=== PATIENT | male | born 1955 | race Caucasian/White ===

== ENCOUNTER 2017-10-20 13:26 | Emergency (ER) | payer BC, SELFPAY ==
[2017-10-20 13:33] VITALS: BP 195/101; PULSE 95; RESP 16; TEMP 37.3; O2SAT 96
--- NOTE | 2017-10-20 13:47 | ED.GENADUL ---
Disposition Clinical Impression: Hematuria Disposition: HOME Condition: Good Instructions: Hematuria (ED) Additional Instructions: Please follow-up with Dr. Mcgovern on Sunday. We will contact you for the appointment time. Please keep the Chahal in. If you notice any lack of urine flow, worsening bleeding, lightheadedness, fainting please return immediately for reevaluation. Please keep the Chahal bag in until your follow-up with Dr. Mcgovern on Sunday. Please eat a salty diet for the next 24-48 hours to continue to raise her sodium level. If you notice any worsening of your symptoms, or any new symptoms such as vomiting, diarrhea, fever, chills, shortness of breath, chest pain, numbness, weakness, or fainting , please return immediately to the emergency department for reevaluation. Please follow up with your primary care provider as soon as possible for reassessment and reevaluation. As always, it was a pleasure participating in your medical care today. Referrals: Kenan Mcgovern MD [ [facility] STAFF PHYSICIAN] - Medical Decision Making - Medical Decision Making This is a pleasant 61-year-old male who presents for hematuria for the last 24 hours which she states is very common since his previous bladder surgeries. He has been concerned though because it has not resolved with his copious amounts of water intake at home. In the past he is actually been admitted for hyponatremia secondary to the copious amounts of water that he was taking. Physical exam demonstrates no signs of pain, or significant abnormality. We will evaluate for his hemoglobin status, we will rehydrate, and three-way Chahal to irrigate any clots. He will then need prompt follow-up with urology if his results are relatively benign. 5: 40 4 PM Patient had a three-way Chahal placed, minimal clots were exuded. The urine initially ran pink, but then became a cranberry juice color. Patient still has no pain. Initial sodium was 125, he was given a liter, and so electrolytes were redrawn, and his sodium was making an upward gain. He demonstrates no neurologic complaints, shows no signs of ataxia, imbalance, or mental status changes. I feel that this is iatrogenic secondary to his the copious amounts of free water that he has been drinking in an attempt to hydrate himself for his hematuria. With no signs of neurologic findings and the fact that he has had significantly lower sodiums in the past they feel that he is stable for discharge home with close follow-up. We did contact Dr. Mcgovern, however he is not actually operations staff specialist security. He was not able to call back. I do feel that the patient can follow up promptly on Sunday morning for potential urologic evaluation. He will be given a Chahal catheter with a leg bag for home use. We discussed red flags which to return. He is hemodynamically stable with no significant tachycardia, hypotension, and does demonstrate a normal hemoglobin. I have extensively reviewed the treatment plan and discharge instructions with the patient. I have addressed all patient concerns at this time. The patient was made aware of what symptoms to monitor for that would warrant a return to the emergency department. Discussed the plan with the patient, they demonstrate verbal understanding and agreement with our assessment and plan at this time. History of Present Illness - General Chief complaint: Urinary Stated complaint: UTI Time Seen by Provider: 10/20/17 13:44 - History of Present Illness Initial comments: This is a 61-year-old male with a past medical history of bladder cancer in 2001 with surgical resection and radiation, and repeat tumor within the last 5 years which was surgically removed. He presents today for hematuria. Patient states that classically over the last few years when he gets dehydrated he will notice some blood in his urine, then he will drink a significant amount of water and this will resolve on its own. He states that over the last few days he has not been drinking as much, noticed some mild hematuria starting 24 hours ago, has been drinking a fair bit of water and Gatorade, but has noted continued hematuria. He denies any pain, dysuria, flank pain, vomiting, or diarrhea. He has admitted to slight increase worsening difficulty for urinating, as well as some pelvic pressure but denies any significant pain. He has not been following up with urology for the last 1-2 years. He has been told by Dr. Mcgovern whom he has never seen, that he needs to follow-up with him but he has not yet. He is not on any blood thinners. He denies any other complaints at this time. He denies any IV or illicit drug use. He denies any pertinent family history. - Related Data Diltiazem [Cardizem Cd] 240 mg PO QAM 12/02/16 Hydrochlorothiazide 25 mg PO DAILY 12/02/16 Lisinopril [Prinivil] 30 mg PO DAILY 12/02/16 Allergies Allergy/AdvReac Type Severity Reaction Status Date / Time No Known Allergies Allergy Unverified 10/20/17 14:13 Review of Systems Other: 10 point review of systems was performed, pertinent positives and negatives are noted in the history of present illness. Past Medical History - Past Medical History bladder cancer s/p radiation Surgical history: other (bladder tumor ) - Social History Alcohol use: none Drug use: none General Exam - Other Other exam information: 1.Const: Well-nourished, Well-developed, appearing stated age 2.Eyes: PERRL, no conjunctival injection, and symmetrical lids. 3.ENT: Atraumatic external nose and ears. Moist MM. Neck: Symmetric, trachea midline, No thyromegaly. 4.CVS: +S1/S2, No murmurs or gallops. Peripheral pulses 2+ and equal in all extremities. Brisk capillary refill in all extremities. 5.RESP: Unlabored respiratory effort. Clear to auscultation bilaterally. No wheezes rales or rhonchi 6.GI: Soft, Nontender/Nondistended, No hepatosplenomegaly. No guarding or rebound. 7.MSK: Normocephalic/Atraumatic, Extremities w/o deformity or ttp No cyanosis or clubbing, Normal movement of all extremities. No flank tenderness on percussion. Male genitalia demonstrates an uncircumcised penis, with no blood at the urethral meatus. Patient does demonstrate slightly edematous scrotum, which she assured me multiple times that this is his baseline, as confirmed by his . Left-sided reducible hernia noted. No testicular tenderness. Good transillumination with lighting. No penile or testicular tenderness. 8.Skin: Warm, Dry. No rashes or lesions. 9.Neuro: kardex clerk II-XII grossly intact. Sensation grossly intact, no focal neurologic deficits. 10.Psych: (AAO) x3. Appropriate mood and affect Course Vital Signs - 24 hr 10/20/17 13:33 Temperature 37.3 C Pulse 95 H Respiratory 16 Rate Blood Pressure 195/101 Pulse Oximetry 96
[2017-10-20 14:07] LABS: Abs Immature Grans 0.01 k/cumm (0.0-0.09); Absolute Basophil Count 0.02 k/cumm (0.0-0.2); Absolute Eosinophil Count 0.15 k/cumm (0.0-0.7); Absolute Lymphocyte Count 1.22 k/cumm (1.2-3.4); Absolute Monocyte Count 0.59 k/cumm (0.11-0.7); Absolute Neutrophil Count 6.75 k/cumm (1.2-6.7); Basophils % 0.2; Eosinophils % 1.7; HCT 40.6 % (40.0-50.0); Immature Grans % 0.1; Mean Corp. HGB Concentration 34.5 g/dL (32.0-36.0); Mean Corpuscular Hemoglobin 28.7 pg (27.0-33.0); Mean Corpuscular Volume 83.4 fL (80-95); Mean Platelet Volume 9.1 fL (8.0-11.0); Monocytes % 6.8; Neutrophils % 77.2; Platelet Count 319 x1000/uL (130-400); RBC 4.87 m/cumm (4.50-6.00); RBC Distribution Width 12.7 % (11.8-14.1); White Blood Cell Count 8.74 k/cumm (4.4-10.8)
[2017-10-20] MEDS: Normal Saline 1,000 ML 1000 ML IV (14:12)
[2017-10-20] MEDS: LORazepam 2 MG/ML VIAL 0.5 MG IVP ×2 (14:13→16:58)
[2017-10-20 14:19] LABS: ALT 21 U/L (12-78); AST 17 U/L (15-37); Albumin 3.7 g/dL (3.4-5.0); Alkaline Phosphatase 74 U/L (46-116); Anion Gap 9.9 mmol/L (3-11); BUN 12 mg/dL (7-18); Bilirubin, Total 0.8 mg/dL (0.2-1.0); CO2 24.1 mmol/L (21.0-32.0); CREATININE 0.99 mg/dL (0.70-1.30); Calcium 8.8 mg/dL (8.5-10.1); Chloride 91 mmol/L (98-107); Glucose 111 mg/dL (70-100); Potassium 3.4 mmol/L (3.5-5.1); Sodium 125 mmol/L (136-145); Total Protein 7.1 g/dL (6.4-8.2)
[2017-10-20 14:32] LABS: INR 1.1 (1.0-3.5); PTT Activated 28.1 sec (21.0-31.4); Prothrombin Time 10.3 sec (9.3-10.8)
[2017-10-20] MEDS: Lidocaine 2% Jelly 11 ML SYR ×2 (15:23→18:21)
[2017-10-20 15:42] LABS: ALT 21 U/L (12-78); AST 15 U/L (15-37); Albumin 3.1 g/dL (3.4-5.0); Alkaline Phosphatase 63 U/L (46-116); Anion Gap 10.1 mmol/L (3-11); BUN 11 mg/dL (7-18); Bilirubin, Total 0.7 mg/dL (0.2-1.0); CO2 21.9 mmol/L (21.0-32.0); CREATININE 1.06 mg/dL (0.70-1.30); Calcium 7.9 mg/dL (8.5-10.1); Chloride 96 mmol/L (98-107); Glucose 101 mg/dL (70-100); Potassium 3.3 mmol/L (3.5-5.1); Sodium 128 mmol/L (136-145); Total Protein 6.1 g/dL (6.4-8.2)
[2017-10-20 18:21] VITALS: BP 159/95; PULSE 89; RESP 16; O2SAT 97
[2017-10-20] MEDS: LORazepam 0.5 MG TAB 1 MG PO (18:43)
== END 2017-10-20 18:49 | disposition home or self-care (01) ==
PROVIDERS: Emergency Provider Student in an Organized Health Care Education/Training Program; PCP Internal Medicine
DX: R31.9 Hematuria, unspecified (principal); E87.1 Hypo-osmolality and hyponatremia; I10 Essential (primary) hypertension; Z85.51 Personal history of malignant neoplasm of bladder; Z92.3 Personal history of irradiation
CPT/HCPCS: 36415; 51703; 80053; 96361; 96374; 96376; 99284; 80329; 81003; 85025; 85610; 85730; J2060

== ENCOUNTER 2017-10-20 20:01 | Emergency (ER) | payer BC, SELFPAY ==
[2017-10-20 20:13] VITALS: BP 119/83; PULSE 95; RESP 16; TEMP 36.5; O2SAT 97
--- NOTE | 2017-10-20 20:23 | ED.GENADUL ---
Disposition Clinical Impression: Blocked urinary catheter Disposition: HOME Condition: Stable Instructions: Manual Bladder Irrigation (GEN) Medical Decision Making - Medical Decision Making pt here after his catheter was blocked and had some discomfort, now draining on it's own without residual clots and feels better without symptoms, will d/c home. He denies fevers and has no suprapubic pain now that his catheter is draining so do not feel he requires eval for uti - Differential Diagnosis clogged cather, urinary distenion History of Present Illness - General Chief complaint: Recheck Stated complaint: CATHETER TO BE PULLED Time Seen by Provider: 10/20/17 20:03 Source: patient Mode of arrival: ambulatory Limitations: no limitations - History of Present Illness Initial comments: 61 yo male who has required multiple foleys in the past and had another placed today, comes in because the quinn hasn't drained for a few horus and he was having pain in the suprapubic region. While walking into the exam room a clot drained and he had 300cc of blood tinged urine come out and this completely relieved his symptoms. HAs no pain, fevers, n/v, back pain now. MD Complaint: plugged catheter Onset/Timin -: hour(s) Improves with: none Worsens with: none - Related Data Diltiazem [Cardizem Cd] 240 mg PO QAM 12/02/16 Hydrochlorothiazide 25 mg PO DAILY 12/02/16 Lisinopril [Prinivil] 30 mg PO DAILY 12/02/16 Allergies Allergy/AdvReac Type Severity Reaction Status Date / Time No Known Allergies Allergy Unverified 10/20/17 14:13 Review of Systems Constitutional: denies: chills, fever Respiratory: denies: shortness of breath Cardiovascular: denies: chest pain Gastrointestinal: denies: abdominal pain, nausea, vomiting Musculoskeletal: denies: back pain Skin: denies: rash Neurological: denies: headache Comment: All other systems reviewed and negative Past Medical History - Past Medical History bladder cancer s/p radiation Surgical history: other (bladder tumor ) - Social History Alcohol use: none Drug use: none General Exam - General Limitations: no limitations General appearance: alert, in no apparent distress - Head Head exam: Present: atraumatic - Eye Eye exam: Present: normal apperance - ENT ENT exam: Present: mucous membranes moist - Neck Neck exam: Present: normal inspection - Respiratory Respiratory exam: Absent: respiratory distress - Cardiovascular Cardiovascular Exam: Present: regular rate - GI/Abdominal GI/Abdominal exam: Absent: tenderness - Extremities Exam Extremities exam: Present: normal inspection - Back Exam Back exam: Absent: CVA tenderness (R), CVA tenderness (L) - Neurological Exam Neurological exam: Present: alert, oriented X3 - Psychiatric Psychiatric exam: Present: normal affect - Skin Skin exam: Present: warm Course Vital Signs - 24 hr 10/20/17 20:13 Temperature 97.7 F Pulse 95 H Respiratory 16 Rate Blood Pressure 119/83 Pulse Oximetry 97
--- NOTE | 2017-10-21 01:24 | NUR.NOTE ---
Nursing Note: at the time of discharge urine was director of market analysis with occ small clot. Patient had increased po fluids intake
--- NOTE | 2017-10-21 01:26 | NUR.NOTE ---
Nursing Note: leg bag kit was sent home with the patient. cath was to large gravity bag at discharge.
== END 2017-10-20 21:12 | disposition home or self-care (01) ==
PROVIDERS: Emergency Provider Emergency Medicine; PCP Internal Medicine
DX: T83.091A Other mechanical complication of indwelling urethral catheter, initial encounter (principal); Y84.6 Urinary catheterization as the cause of abnormal reaction of the patient, or of later complication, without mention of misadventure at the time of the procedure
CPT/HCPCS: 99281

== ENCOUNTER 2017-10-20 23:18 | Emergency (ER) | payer BC, SELFPAY ==
--- NOTE | 2017-10-20 23:58 | ED.GENADUL ---
Disposition Clinical Impression: Complication, blocked Quinn catheter Disposition: HOME Condition: Good Medical Decision Making - Medical Decision Making PT here with non draining quinn. ATtempted irrigation but no return, will have nursing place larger quinn patient now draining bloody urine without clots. HE feels much better and would like d/c. Will d/c home and he will f/u with urology - Differential Diagnosis clogged quinn, clots History of Present Illness - General Stated complaint: CATH PLUGGED Time Seen by Provider: 10/20/17 23:28 - History of Present Illness Initial comments: 61 yo male returns as his quinn again stopped draining. HE was seen on 10/20 and had uqinn placed which he has required multiple times in the past. It stopped drainaging and he returned, it was flushed with good flow and d/c'd home but again became clogged so came back here. Denies fevers or chills, back pain. Has bloody urine in quinn bag Complaint: clogged quinn Onset/Timin -: hour(s) Improves with: none Worsens with: none - Related Data Diltiazem [Cardizem Cd] 240 mg PO QAM 12/02/16 Hydrochlorothiazide 25 mg PO DAILY 12/02/16 Lisinopril [Prinivil] 30 mg PO DAILY 12/02/16 Allergies Allergy/AdvReac Type Severity Reaction Status Date / Time No Known Allergies Allergy Unverified 10/21/17 00:09 Review of Systems Constitutional: denies: fever Respiratory: denies: shortness of breath Cardiovascular: denies: chest pain Gastrointestinal: denies: abdominal pain, nausea, vomiting Musculoskeletal: denies: back pain Skin: denies: rash Comment: All other systems reviewed and negative Past Medical History - Past Medical History bladder cancer s/p radiation Surgical history: other (bladder tumor ) - Social History Alcohol use: none Drug use: none General Exam - General Limitations: no limitations General appearance: alert, in no apparent distress - Head Head exam: Present: atraumatic - Eye Eye exam: Present: normal apperance - ENT ENT exam: Present: mucous membranes moist - Neck Neck exam: Present: normal inspection - Respiratory Respiratory exam: Absent: respiratory distress - Cardiovascular Cardiovascular Exam: Present: regular rate - GI/Abdominal GI/Abdominal exam: Present: soft. Absent: distended - Extremities Exam Extremities exam: Present: normal inspection - Back Exam Back exam: Absent: CVA tenderness (R), CVA tenderness (L) - Neurological Exam Neurological exam: Present: alert, oriented X3 - Skin Skin exam: Present: warm
[2017-10-21 00:05] VITALS: BP 158/88; PULSE 78; RESP 20; TEMP 37.1; O2SAT 97
[2017-10-21] MEDS: Lidocaine 2% Jelly 11 ML SYR (00:11)
--- NOTE | 2017-10-21 01:28 | NUR.NOTE ---
Nursing Note: quinn cath currently in place d/c'd, scant urine output
[2017-10-21 01:31] VITALS: BP 140/80; PULSE 68; RESP 18; O2SAT 97
== END 2017-10-21 15:30 | disposition home or self-care (01) ==
PROVIDERS: Emergency Provider Emergency Medicine; PCP Internal Medicine
DX: T83.091A Other mechanical complication of indwelling urethral catheter, initial encounter (principal); Y84.6 Urinary catheterization as the cause of abnormal reaction of the patient, or of later complication, without mention of misadventure at the time of the procedure
CPT/HCPCS: 51703; 99283

== ENCOUNTER 2017-10-21 13:24 | Emergency (ER) | payer BC, SELFPAY ==
[2017-10-21 13:29] VITALS: BP 139/93; PULSE 103; RESP 20; TEMP 36.4; O2SAT 99
--- NOTE | 2017-10-21 13:36 | ED.GENADUL_ITS ---
Disposition Clinical Impression: Hematuria Disposition: HOME Condition: Stable Instructions: Hematuria (ED) Additional Instructions: Please follow-up with Dr. Mcgovern tomorrow morning. Please continue to flush her bladder as needed as we showed you. If you notice any worsening of your symptoms, or any new symptoms such as vomiting, diarrhea, fever, chills, shortness of breath, chest pain, numbness, weakness, or fainting , please return immediately to the emergency department for reevaluation. Please follow up with your primary care provider as soon as possible for reassessment and reevaluation. As always, it was a pleasure participating in your medical care today. Referrals: Kenan Mcgovern MD [ [facility] STAFF PHYSICIAN] - Medical Decision Making - Medical Decision Making This is a 61-year-old male with history of hematuria who needs prompt follow-up with Dr. Mcgovern of urology. He was seen yesterday for hematuria, discharged home with a three-way Chahal catheter. He has been back twice for various questions or concerns. He did seem to have some obstruction yesterday, and then a subsequent three-way Chahal was placed and set of the small single lumen Chahal was previously inserted. He comes in today for evaluation of potential clotting. Patient states that they have been flushing at home, however when they would insert fluid he would go freely, however they had some resistance when retracting it however the patient had continued drainage of fluid from his Chahal. He was concerned that there may be a clot at the end which could be causing that intermittent obstruction. Physical exam shows no pain or tenderness. Patient is very nervous, and has a high anxiety level. I feel that he is safe for discharge home. We will irrigate some here in the emergency department. We did discuss with the patient potential admission for continued irrigation and close management however the patient is adamant that he would like to go home rather than stay here overnight. 3 PM A large clot was extracted by nursing utilizing flushing technique without any difficulty. Patient continues to have some mild blood-tinged urine, but no evidence of continued clots. Patient continues no pain and no other symptoms whatsoever. I did discuss with him admission versus discharge and he is still requesting discharge. His three-way Chahal remains in place, we went over directions and instructions with both patient and his are proper flushing techniques. He will follow-up with Dr. Mcgovern tomorrow morning. We discussed red flags which return he understands. I have extensively reviewed the treatment plan and discharge instructions with the patient and their family. I have addressed all patient concerns at this time. The patient and family was made aware of what symptoms to monitor for that would warrant a return to the emergency department. Discussed the plan with the patient and family, they demonstrate verbal understanding and agreement with our assessment and plan at this time. History of Present Illness - General Chief complaint: Recheck Stated complaint: UTI Time Seen by Provider: 10/21/17 13:35 - History of Present Illness Initial comments: This is a 61-year-old male with a past medical history of bladder cancer in 2001 with surgical resection radiation, and repeat tumor within the last 5 years which was surgically removed. He presented yesterday for evaluation of hematuria. He was rehydrated, a Chahal was placed, and a shunt was discharged home after he was noted to be hemodynamically stable, have a normal hemoglobin, and no pain or other systemic symptoms. The patient does have history of anxiety and is extremely nervous and anxious with these episodes. He returned twice throughout the night, and eventually had a three- way Chahal that was placed, but requesting discharge since he was stable he was eventually discharged home. Follow-up with Dr. Mcgovern will occur on Sunday. He presents today for repeat concern for potential clogging of the Chahal. Chahal still does show mild redness in the bladder bag. They have been flushing at home, and note that there is no resistance when inserting fluid, however they do note some resistance when extracting it. The patient still does have consistent drainage from his Chahal catheter, however they cannot draw it out as easily as they would like. They are concerned for potential clot so they came for evaluation. The patient denies any complaints, pain, or any new symptoms. - Related Data Diltiazem [Cardizem Cd] 240 mg PO QAM 12/02/16 Hydrochlorothiazide 25 mg PO DAILY 12/02/16 Lisinopril [Prinivil] 30 mg PO DAILY 12/02/16 Allergies Allergy/AdvReac Type Severity Reaction Status Date / Time No Known Allergies Allergy Unverified 10/21/17 00:09 Review of Systems Other: 10 point review of systems was performed, pertinent positives and negatives are noted in the history of present illness. Past Medical History - Past Medical History bladder cancer s/p radiation Surgical history: other (bladder tumor ) - Social History Alcohol use: none Drug use: none General Exam - Other Other exam information: 1.Const: Well-nourished, Well-developed, appearing stated age 2.Eyes: PERRL, no conjunctival injection, and symmetrical lids. 3.ENT: Atraumatic external nose and ears. Moist MM. Neck: Symmetric, trachea midline, No thyromegaly. 4.CVS: +S1/S2, No murmurs or gallops. Peripheral pulses 2+ and equal in all extremities. Brisk capillary refill in all extremities. 5.RESP: Unlabored respiratory effort. Clear to auscultation bilaterally. No wheezes rales or rhonchi 6.GI: Soft, Nontender/Nondistended, No hepatosplenomegaly. No guarding or rebound. exam: Triple-lumen Chahal is in place. No suprapubic pain or tenderness. No blood at the urethral meatus. 7.MSK: Normocephalic/Atraumatic, Extremities w/o deformity or ttp No cyanosis or clubbing, Normal movement of all extremities 8.Skin: Warm, Dry. No rashes or lesions. 9.Neuro: kiln firer helper II-XII grossly intact. Sensation grossly intact, no focal neurologic deficits. 10.Psych: (AAO) x3. Appropriate mood and affect Course Vital Signs - 24 hr 10/21/17 13:29 Temperature 36.4 C L Pulse 103 H Respiratory 20 Rate Blood Pressure 139/93 Pulse Oximetry 99
[2017-10-21] MEDS: LORazepam 0.5 MG TAB PO (13:53)
[2017-10-21 15:29] VITALS: BP 115/78; PULSE 81; RESP 16; O2SAT 98
--- NOTE | 2017-10-22 09:52 | PDOC.ERCMPRO ---
Care Management Progress Note 10/22-Dr. Woodruff requested assistance with a urology f/u today, 10/22 for urinary retention and hematuria. Patient seen in ED 10/20 and 10/21. Three way quinn cath placed on 10/20. Patient flushing at home. Referral faxed to Urology this am.
== END 2017-10-21 15:30 | disposition home or self-care (01) ==
PROVIDERS: Emergency Provider Student in an Organized Health Care Education/Training Program; PCP Internal Medicine
DX: T83.091A Other mechanical complication of indwelling urethral catheter, initial encounter (principal); R31.9 Hematuria, unspecified
CPT/HCPCS: 99284; 99283

== ENCOUNTER 2019-01-30 14:45 | Outpatient (REF) | payer BC, SELFPAY | END 2019-01-30 15:05 | LOC: LBN 14:45 | PROVIDERS: PCP Internal Medicine; Visit Provider Nurse Practitioner Gerontology | DX: R31.0 Gross hematuria (principal); Z85.51 Personal history of malignant neoplasm of bladder | CPT/HCPCS: 87086 ==

== ENCOUNTER 2019-02-03 09:18 | Day surgery (SDC) | payer BC, SELFPAY ==
[2019-02-03] VITALS (13 sets, daily range): BP systolic 98–163; BP diastolic 48–106; PULSE 59–98; RESP 9–18; TEMP 36.2–36.7; O2SAT 95–99
[2019-02-03] MEDS: Lactated Ringers 1,000 ML 80 ML IV (10:05)
[2019-02-03] MEDS: ceFAZolin 1 GM/50 ML BAG IVPB (10:45)
[2019-02-03] MEDS: Lidocaine 2% Jelly 6 ML SYR (10:54)
--- NOTE | 2019-02-03 11:04 | BLADDER_PTH ---
PATIENT: ELSY TRAVIS LOC: [facility] U#:[id number] AGE/SX: 63/M ROOM: RE02/03/[address]: Kenan Mcgovern MD : [id number] BED: DIS: 02/03/2019 SPEC #: [id number] RECD: 02/03/19 12:34 STATUS: RONALDO REQ #: [id number] RACHEL: 02/03/19 11:[address]: Kenan Mcgovern DEPT: Surgical Specimen RECD BY: Nicole Matias ENTERED: 02/03/19 12:37 SP TYPE: Bladder OTHR DR: Chucky Cruz Tissues: 1 - BLADDER BIOPSY Procedures: GROSS AND MICRO LEVEL 4 IMMUNOPEROXIDASE STAIN Comments: [id number]
--- NOTE | 2019-02-03 11:14 | W.PM.DSUDISC ---
Discharge Plan Disposition Patient Disposition: HOME Condition: Stable Discharge Details Attending Provider: Kenan Mcgovern Primary Care Provider: Chucky Cruz Home Meds and New Rx's Prescriptions: New lorazepam 1 mg tablet 1 mg PO TID MDD 3 PRN (Reason: spasms) Qty: 15 RF: 0 No Action Lorazepam 1 MG tablet 1 mg PO HS Qty: 15 RF: 0 diltiazem HCl 240 MG capsule,ext.rel 24h degradable 240 mg PO QAM RF: 0 lisinopril [Zestril] 30 MG tablet 30 mg PO DAILY RF: 0 hydrochlorothiazide 25 MG tablet 25 mg PO DAILY RF: 0 famotidine 20 MG tablet 20 mg PO PRN PRNRF: 0 tramadol 50 MG tablet 50 mg PO Q6H PRN (Reason: Pain) Qty: 20 RF: 0 Discharge Instructions Additional Instructions: Pt must void prior to discharge F/U 1 week to discuss pathology results Activity:: Activity as Tolerated Shower/Bathe:: 24 hours Diet:: As Tolerated Discharge Orders Discharge Orders: Discharge Order (Routine); Ordered 02/03/19 Ordered By: Kenan Mcgovern DS: Diagnosis Discharge Diagnosis (1) Gross hematuria: Status: Acute (2) History of bladder cancer: Status: Acute
[2019-02-03] MEDS: Phenazopyridine 200 MG TAB PO (11:52)
[2019-02-03] MEDS: LORazepam 2 MG/ML VIAL 0.5 MG IVP ×2 (11:52→12:07)
--- NOTE | 2019-02-03 12:32 | ROE_ITS ---
DATE OF PROCEDURE: February 03, 2019 PREOPERATIVE DIAGNOSIS: 1. Gross hematuria. 2. History of invasive bladder cancer. POSTOPERATIVE DIAGNOSIS: Same. PROCEDURE: Cystoscopy; transurethral resection of bladder lesions with fulguration of bleeding sites . SURGEON: Kenan Mcgovern M.D. ANESTHESIA: MAC with conversion to General by facemask. COMPLICATIONS: None. ESTIMATED BLOOD LOSS: Minimal. HISTORY: This is a 63-year-old gentleman who has a history of invasive bladder cancer. He was treat ed with external beam radiation and systemic chemotherapy. He's had several localized recurrences wi th low-grade, non-invasive tumor since his initial diagnosis over fifteen years ago. Recently he's been having gross hematuria with clots. He presents now for a cystoscopy with possible clot evacuation, possible transurethral resection of any visible tumor, and possible fulguration of any bleeding sites. OPERATIVE REPORT: The patient was brought to the operating room on 02/03/19. After successful induc tion of monitored anesthesia care, he was placed in the dorsal lithotomy position. His genitalia was prepped and draped. 2% Xylocaine jelly was instilled into the urethra to act as a local anesthetic. A 22French rigid cystoscope was passed through the urethra into the bladder. The urethra and bladder were inspected with a 30-degree lens. The pendulous, bulbous and membranous urethras appeared normal with no strictures. The prostatic ure thra showed no active bleeding and no papillary lesions. The bladder neck was entered and the bladder mucosa was inspected. No blood was seen coming from eit her ureteral orifice. On the patient's left lateral wall some necrotic tissue was identified along with some papillary lesi ons worrisome for urothelial cell carcinoma. No similar lesions were found on the right side of the bladder. The cystoscope was withdrawn and we then passed in a 24 [place] resectoscope sheath. We converted to general anesthesia. Re-inspection of the bladder confirmed the abnormal area on the left lateral wall. This area measure d between 2 and 5 cm in largest dimension. We utilized the resectoscope loop to take multiple biopsi es of the visible abnormality, including the necrotic area, as well as the more papillary area. Thes e samples were sent to pathology for permanent section. We then switched over to the ball electrode and cauterized all biopsy sites and abnormal-appearing ti ssue. Care was taken not to involve the ureteral orifice in the cauterization procedure. At the completion of the procedure no active bleeding was seen. The scope was removed. The patient tolerated this procedure well with no complications. cc: Chucky Cruz M.D.
[2019-02-03] MEDS: Oxybutynin 5 MG TAB PO ×2 (13:26→16:19)
[2019-02-03] MEDS: traMADol 50 MG TAB PO (13:54)
== END 2019-02-03 17:23 | disposition home or self-care (01) ==
PROVIDERS: PCP Internal Medicine; Visit Provider Urology
PROC: 0TBB8ZZ Excision of Bladder, Via Natural or Artificial Opening Endoscopic (ICD-10-PCS; CPT 52235; principal; 2019-02-03 11:15)
DX: C67.2 Malignant neoplasm of lateral wall of bladder (principal); R31.0 Gross hematuria; Z92.3 Personal history of irradiation; Z92.21 Personal history of antineoplastic chemotherapy
CPT/HCPCS: 52235; 88305; 88361; J0690; J2060

== ENCOUNTER 2019-03-31 01:41 | Outpatient (CLI) | payer BC, SELFPAY ==
[2019-03-31 13:10] LABS: CREATININE 1.17 mg/dL (0.70-1.30)
[2019-03-31] MEDS: Breeza Beverage 473 ML BTL PO ×2 (13:18→13:19)
[2019-03-31] MEDS: Omnipaque 350 MG/ML 50 ML BTL PO (13:19)
--- NOTE | 2019-03-31 14:46 | DI.CT_ITS ---
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 Mediastinum and Brooke: Enlarged lymph nodes present. There is an enlarged subcarinal lymph node measu ring 2.9 x 1.4 centimeters. 1.7 centimeter right node. Pulmonary parenchyma: No consolidation or dominant measurable mass. No architectural distortion. Pleura: No effusion or pneumothorax. Lymph nodes: See above. Aorta: Thoracic portion non-dilated. Heart: No cardiomegaly or pericardial effusion. Bones: Degenerative changes. Old right rib fracture. No aggressive osseous lesion. ABDOMEN: Liver: Normal density. There are few round, homogeneously hypodense lesions scattered in the liver. The largest is seen in the caudal aspect of the liver and measures 1.1 cm. They are too small for fu rther characterization but likely reflect cysts. Gallbladder and biliary tract: No radiodense calculus or dilation. Pancreas: Normal density, no abnormal calcifications or inflammatory process. Spleen: Normal. Kidneys: Normal size, contour and axis. No radiodense stones or obstructive uropathy. Bilateral renal cysts. There is mild dilatation of the left renal collecting system to the level of the urinary angelika dder. No obstructing stone is seen. Adrenal glands: No masses seen. Aorta: Atherosclerosis. No aneurysmal dilatation. Lymph nodes: Enlarged lymph nodes are seen in the retroperitoneum. The largest is a left periaortic lymph node measuring 1.4 centimeters in short axis. There are enlarged lymph nodes seen within the m esentery. PELVIS: Bladder: There is bladder wall thickening. It appears eccentric. It is most marked on the left and at the base. Bowel: There is a large amount of stool throughout the colon suggesting constipation. No evidence of bowel obstruction is seen. There is a normal appendix present. No evidence of bowel, inflammatory or infectious process. There is a small hiatal hernia. Peritoneal cavity: No ascites, collection or mesenteric inflammatory response. Bones: Degenerative changes are seen in the spine. No aggressive osseous lesions are identified. Reproductive organs: Note is made of a large right hydrocele. Prostate gland appears enlarged. IMPRESSION: 1. Asymmetric urinary bladder wall thickening. Neoplasm cannot be excluded. Follow-up is recommende d. 2. Enlarged retroperitoneal lymph nodes. 3. Mild dilatation of the left renal collecting system without evidence of obstructing stone. Bladde r mass cannot be excluded. 4. Large right hydrocele. 5. Enlarged thoracic lymph nodes. DATA REPOSITORY: All CT scans at this facility are submitted to the National Radiology Data Registry (NRDR) Dose Index Registry (DIR) with the [employer] ([employer]). RADIATION OPTIMIZATION: All CT scans at this facility use at least one of these dose optimization te chniques: automated exposure control; mA and/or kV adjustment per patient size (includes targeted exa ms where dose is matched to clinical indication); or iterative reconstruction.
[2019-03-31] MEDS: Omnipaque 350 MG/ML 100 ML BTL IJ (14:53)
== END 2019-03-31 02:01 ==
PROVIDERS: PCP Internal Medicine; Visit Provider Urology
DX: Z85.51 Personal history of malignant neoplasm of bladder (principal); Z92.21 Personal history of antineoplastic chemotherapy; Z92.3 Personal history of irradiation; Z12.89 Encounter for screening for malignant neoplasm of other sites; R59.0 Localized enlarged lymph nodes; K76.89 Other specified diseases of liver; N32.89 Other specified disorders of bladder; K44.9 Diaphragmatic hernia without obstruction or gangrene; N43.3 Hydrocele, unspecified
CPT/HCPCS: 71260; 72193; 74160; 82565; J3490; Q9967

== ENCOUNTER 2019-04-30 01:17 | Outpatient (CLI) | payer BC, SELFPAY ==
--- NOTE | 2019-04-30 | DI.MRI_ITS ---
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 COMPARISON: No exams were available for comparison FINDINGS: The ventricles and sulci are consistent with the patient's age. There are hyperintense foci in the w julian matter seen on the FLAIR and T2 weighted images. These likely reflect small vessel ischemic dis ease. There is no acute midline shift or mass effect. The diffusion-weighted images are unremarkabl e. No intracranial hemorrhage is present. Following contrast administration, no enhancing masses ar e appreciated. There are small mucous retention cysts or polyps in the maxillary sinuses bilaterally . There is a normal flow void in the [id number]. The pituitary gland is unremarkable. IMPRESSION: No evidence of intracranial metastatic disease. Findings likely reflecting small vessel ischemic disease.
[2019-04-30] MEDS: Normal Saline Flush 10 ML SYR IVP (15:15)
[2019-04-30] MEDS: Gadoterate meglumine 20 ML VIAL 19 ML IVP (15:16)
== END 2019-04-30 01:37 ==
PROVIDERS: PCP Internal Medicine; Visit Provider Internal Medicine
DX: C67.9 Malignant neoplasm of bladder, unspecified (principal); C79.10 Secondary malignant neoplasm of unspecified urinary organs; I67.82 Cerebral ischemia
CPT/HCPCS: 70553

== ENCOUNTER 2019-05-27 07:52 | Outpatient (CLI) | payer BC, SELFPAY ==
[2019-05-27 08:18] LABS: Abs Immature Grans 0.09 k/cumm (0.0-0.09); Absolute Basophil Count 0.06 k/cumm (0.0-0.2); Absolute Eosinophil Count 0.03 k/cumm (0.0-0.7); Absolute Lymphocyte Count 1.32 k/cumm (1.2-3.4); Absolute Monocyte Count 0.78 k/cumm (0.11-0.7); Absolute Neutrophil Count 6.68 k/cumm (1.2-6.7); Basophils % 0.7; Eosinophils % 0.3; HCT 40.6 % (40.0-50.0); HGB 13.5 g/dL (13.5-17.5); Lymphocytes % 14.7; Mean Corp. HGB Concentration 33.3 g/dL (32.0-36.0); Mean Corpuscular Hemoglobin 28.1 pg (27.0-33.0); Mean Corpuscular Volume 84.6 fL (80-95); Mean Platelet Volume 8.2 fL (8.0-11.0); Monocytes % 8.7; Neutrophils % 74.6; Platelet Count 534 x1000/uL (130-400); RBC Distribution Width 13.6 % (11.8-14.1); White Blood Cell Count 8.96 k/cumm (4.4-10.8)
[2019-05-27 08:40] LABS: ALT 23 U/L (16-63); AST 15 U/L (15-37); Albumin 3.5 g/dL (3.4-5.0); Alkaline Phosphatase 99 U/L (46-116); Anion Gap 6.6 mmol/L (3-11); BUN 21 mg/dL (7-18); Bilirubin, Total 0.3 mg/dL (0.2-1.0); CO2 30.4 mmol/L (21.0-32.0); CREATININE 1.26 mg/dL (0.70-1.30); Calcium 9.2 mg/dL (8.5-10.1); Chloride 102 mmol/L (98-107); Estimated GFR 57.44 (mL/min/1.73m2); Glucose 114 mg/dL (74-106); Sodium 139 mmol/L (136-145); Total Protein 7.3 g/dL (6.4-8.2)
== END 2019-05-27 08:12 ==
PROVIDERS: PCP Internal Medicine; Visit Provider Internal Medicine
DX: C67.9 Malignant neoplasm of bladder, unspecified (principal); C79.10 Secondary malignant neoplasm of unspecified urinary organs
CPT/HCPCS: 36415; 80053; 85025

== ENCOUNTER 2019-06-17 04:35 | Outpatient (CLI) | payer BC, SELFPAY ==
[2019-06-17 07:15] LABS: Abs Immature Grans 0.15 k/cumm (0.0-0.09); Absolute Basophil Count 0.04 k/cumm (0.0-0.2); Absolute Eosinophil Count 0.08 k/cumm (0.0-0.7); Absolute Lymphocyte Count 1.44 k/cumm (1.2-3.4); Absolute Monocyte Count 0.74 k/cumm (0.11-0.7); Absolute Neutrophil Count 7.13 k/cumm (1.2-6.7); Basophils % 0.4; Eosinophils % 0.8; HCT 38.6 % (40.0-50.0); HGB 12.8 g/dL (13.5-17.5); Immature Grans % 1.6 %; Mean Corp. HGB Concentration 33.2 g/dL (32.0-36.0); Mean Corpuscular Hemoglobin 28.4 pg (27.0-33.0); Mean Corpuscular Volume 85.6 fL (80-95); Mean Platelet Volume 8.2 fL (8.0-11.0); Monocytes % 7.7; Neutrophils % 74.5; Platelet Count 514 x1000/uL (130-400); RBC 4.51 m/cumm (4.50-6.00); RBC Distribution Width 14.9 % (11.8-14.1); White Blood Cell Count 9.58 k/cumm (4.4-10.8)
[2019-06-17 07:36] LABS: ALT 26 U/L (16-63); AST 15 U/L (15-37); Albumin 3.5 g/dL (3.4-5.0); Alkaline Phosphatase 99 U/L (46-116); Anion Gap 9.2 mmol/L (3-11); BUN 24 mg/dL (7-18); Bilirubin, Total 0.4 mg/dL (0.2-1.0); CO2 25.8 mmol/L (21.0-32.0); CREATININE 1.39 mg/dL (0.70-1.30); Calcium 9.5 mg/dL (8.5-10.1); Chloride 105 mmol/L (98-107); Estimated GFR 51.28 (mL/min/1.73m2); Glucose 109 mg/dL (74-106); Potassium 4.4 mmol/L (3.5-5.1); Sodium 140 mmol/L (136-145); Total Protein 7.3 g/dL (6.4-8.2)
== END 2019-06-17 04:55 ==
PROVIDERS: PCP Internal Medicine; Visit Provider Internal Medicine
DX: C67.9 Malignant neoplasm of bladder, unspecified (principal); C79.10 Secondary malignant neoplasm of unspecified urinary organs
CPT/HCPCS: 36415; 80053; 85025

== ENCOUNTER 2019-07-08 01:10 | Outpatient (CLI) | payer BC, SELFPAY ==
[2019-07-08 08:16] LABS: Abs Immature Grans 0.12 k/cumm (0.0-0.09); Absolute Basophil Count 0.02 k/cumm (0.0-0.2); Absolute Monocyte Count 0.76 k/cumm (0.11-0.7); Absolute Neutrophil Count 6.68 k/cumm (1.2-6.7); Basophils % 0.2; Eosinophils % 1.1; HCT 37.5 % (40.0-50.0); Immature Grans % 1.3 %; Lymphocytes % 15.4; Mean Corpuscular Hemoglobin 28.6 pg (27.0-33.0); Mean Corpuscular Volume 89.5 fL (80-95); Mean Platelet Volume 8.1 fL (8.0-11.0); Monocytes % 8.4; Neutrophils % 73.6; Platelet Count 491 x1000/uL (130-400); RBC 4.19 m/cumm (4.50-6.00); RBC Distribution Width 17.1 % (11.8-14.1); White Blood Cell Count 9.08 k/cumm (4.4-10.8)
[2019-07-08 08:21] LABS: ALT 24 U/L (16-63); AST 16 U/L (15-37); Albumin 3.5 g/dL (3.4-5.0); Alkaline Phosphatase 101 U/L (46-116); Anion Gap 6.4 mmol/L (3-11); BUN 15 mg/dL (7-18); Bilirubin, Total 0.3 mg/dL (0.2-1.0); CO2 27.6 mmol/L (21.0-32.0); CREATININE 1.13 mg/dL (0.70-1.30); Calcium 9.4 mg/dL (8.5-10.1); Chloride 106 mmol/L (98-107); Glucose 139 mg/dL (74-106); Potassium 4.2 mmol/L (3.5-5.1); Sodium 140 mmol/L (136-145); Total Protein 7.3 g/dL (6.4-8.2)
== END 2019-07-08 01:30 ==
PROVIDERS: PCP Internal Medicine; Visit Provider Internal Medicine
DX: C67.2 Malignant neoplasm of lateral wall of bladder (principal); C79.10 Secondary malignant neoplasm of unspecified urinary organs
CPT/HCPCS: 36415; 80053; 85025

== ENCOUNTER 2019-07-28 01:38 | Outpatient (CLI) | payer BC, SELFPAY ==
[2019-07-28 08:46] LABS: Abs Immature Grans 0.18 k/cumm (0.0-0.09); Absolute Basophil Count 0.02 k/cumm (0.0-0.2); Absolute Lymphocyte Count 1.32 k/cumm (1.2-3.4); Absolute Monocyte Count 0.64 k/cumm (0.11-0.7); Basophils % 0.2; Eosinophils % 0.9; HCT 33.3 % (40.0-50.0); Immature Grans % 1.6 %; Lymphocytes % 11.5; Mean Corpuscular Hemoglobin 30.1 pg (27.0-33.0); Mean Platelet Volume 8.2 fL (8.0-11.0); Monocytes % 5.6; Neutrophils % 80.2; Platelet Count 598 x1000/uL (130-400); RBC 3.66 m/cumm (4.50-6.00); RBC Distribution Width 17.1 % (11.8-14.1); White Blood Cell Count 11.48 k/cumm (4.4-10.8)
[2019-07-28 08:49] LABS: Absolute Neutrophil Count 9.21 k/cumm (1.2-6.7)
[2019-07-28 08:59] LABS: ALT 26 U/L (16-63); AST 17 U/L (15-37); Albumin 3.7 g/dL (3.4-5.0); Alkaline Phosphatase 112 U/L (46-116); Anion Gap 10.8 mmol/L (3-11); BUN 26 mg/dL (7-18); Bilirubin, Total 0.3 mg/dL (0.2-1.0); CO2 26.2 mmol/L (21.0-32.0); CREATININE 1.49 mg/dL (0.70-1.30); Calcium 9.4 mg/dL (8.5-10.1); Chloride 102 mmol/L (98-107); Estimated GFR 47.33 (mL/min/1.73m2); Glucose 117 mg/dL (74-106); Potassium 3.9 mmol/L (3.5-5.1); Sodium 139 mmol/L (136-145); Total Protein 7.8 g/dL (6.4-8.2)
--- NOTE | 2019-07-28 10:15 | DI.CT_ITS ---
EXAM: CT CHEST/ABD/PEL W CLINICAL HISTORY: METASTATIC BLADDER CA, C67.9, ON CHEMO, ASSESS RESPONSE COMPARISON: CT CT PELVIC W from 03/31/[address] CHEST W from 03/31/[address] ABDOMEN W from 03/31/2019 FINDINGS: CT examination was performed utilizing biphasic imaging with intravenous infusion of 100 cc of Omnipa que 350. Lungs are clear. No pleural effusion. Previously noted sub carinal patty enlargement, 29 millimeters in diameter on axial scan, most clearl y visualized on coronal scan, 37 millimeters in diameter, unchanged from prior scan of March 31. Mild prominence of pretracheal nodes noted, unchanged. No axillary or supraclavicular adenopathy. Multiple small well-circumscribed low-attenuation hepatic lesions again noted, consistent with cysts, unchanged from prior study. Spleen is unremarkable. Pancreas appears normal. Gallbladder and bile ducts are normal. Bilateral renal cysts again noted. No urinary tract obstruction or calcification. Unremarkable appe arance of adrenal glands. Abdominal aorta is of normal diameter and no major vascular abnormality is seen. No significant abdominal wall hernia identified. No focal small bowel pathology identified. No evidence of obstruction. There is apparent wall thickening of the rectosigmoid, question post radiation change. Bladder wall thickening again noted, irregular, no gross interval change from prior study. Slight prominence of retroperitoneal nodes at the level of the sacrum is noted, this is significantly decreased since the prior examination. Mesenteric root and retroperitoneal nodes noted on prior laure dy are smaller on today's examination, 14 millimeter pre aortic node seen previously now measures les s than 5 millimeters in diameter. No new retroperitoneal and mesenteric adenopathy since the prior s tudy of March 31. No new retroperitoneal or pelvic adenopathy. No bony lesion identified on scanning of the chest, abdomen, or pelvis. IMPRESSION: Stable subcarinal and pretracheal adenopathy in a patient with history of metastatic bladder carcinom a. No other significant change in appearance of the thorax. Interval decrease in size of retroperitoneal and mesenteric adenopathy in comparison with prior study of March 31.
[2019-07-28] MEDS: Omnipaque 350 MG/ML 50 ML BTL PO (10:17)
[2019-07-28] MEDS: Breeza Beverage 473 ML BTL PO ×2 (10:17→10:18)
[2019-07-28] MEDS: Omnipaque 350 MG/ML 100 ML BTL IJ (10:19)
[2019-07-28] MEDS: Normal Saline - Diluent 50 ML VIAL IV (10:20)
[2019-07-28] MEDS: Normal Saline Flush 10 ML SYR IVP ×2 (10:20→10:21)
== END 2019-07-28 01:58 ==
PROVIDERS: PCP Internal Medicine; Visit Provider Internal Medicine
DX: C67.9 Malignant neoplasm of bladder, unspecified (principal); Z92.21 Personal history of antineoplastic chemotherapy; R59.0 Localized enlarged lymph nodes; K76.89 Other specified diseases of liver; C79.10 Secondary malignant neoplasm of unspecified urinary organs
CPT/HCPCS: 74177; 80053; 71260; 85025; J3490; Q9967

== ENCOUNTER 2019-07-29 00:52 | Outpatient (RCR) | payer BC, SELFPAY | END 2019-08-17 23:59 | disposition home or self-care (01) | LOC: INF 00:52 | PROVIDERS: PCP Internal Medicine; Visit Provider Internal Medicine | DX: R69 Illness, unspecified (principal) ==

== ENCOUNTER 2019-08-26 10:28 | Outpatient (REF) | payer BC, SELFPAY ==
[2019-08-26 10:54] LABS: Abs Immature Grans 0.02 k/cumm (0.0-0.09); Absolute Basophil Count 0.07 k/cumm (0.0-0.2); Absolute Eosinophil Count 0.06 k/cumm (0.0-0.7); Absolute Lymphocyte Count 1.16 k/cumm (1.2-3.4); Absolute Neutrophil Count 3.72 k/cumm (1.2-6.7); Basophils % 1.2; HGB 11.2 g/dL (13.5-17.5); Immature Grans % 0.3 %; Lymphocytes % 19.6; Mean Corpuscular Volume 93.8 fL (80-95); Mean Platelet Volume 8.5 fL (8.0-11.0); Monocytes % 15.2; Neutrophils % 62.7; Platelet Count 401 x1000/uL (130-400); RBC 3.73 m/cumm (4.50-6.00); RBC Distribution Width 15.3 % (11.8-14.1); White Blood Cell Count 5.93 k/cumm (4.4-10.8)
[2019-08-26 11:02] LABS: ALT 19 U/L (16-63); AST 16 U/L (15-37); Albumin 3.8 g/dL (3.4-5.0); Alkaline Phosphatase 100 U/L (46-116); Anion Gap 12.4 mmol/L (3-11); BUN 29 mg/dL (7-18); Bilirubin, Total 0.4 mg/dL (0.2-1.0); CO2 22.6 mmol/L (21.0-32.0); CREATININE 1.44 mg/dL (0.70-1.30); Calcium 9.6 mg/dL (8.5-10.1); Chloride 102 mmol/L (98-107); Estimated GFR 49.23 (mL/min/1.73m2); Glucose 105 mg/dL (74-106); Potassium 4.1 mmol/L (3.5-5.1); Sodium 137 mmol/L (136-145); Total Protein 7.6 g/dL (6.4-8.2)
== END 2019-08-26 10:48 ==
LOC: LBN 10:28
PROVIDERS: PCP Internal Medicine; Visit Provider Internal Medicine
DX: C79.10 Secondary malignant neoplasm of unspecified urinary organs (principal); C67.9 Malignant neoplasm of bladder, unspecified
CPT/HCPCS: 80053; 85025

== ENCOUNTER 2019-09-16 02:05 | Outpatient (RCR) | payer BC, SELFPAY | END 2019-09-16 23:59 | disposition home or self-care (01) | LOC: INF 02:05 | PROVIDERS: PCP Internal Medicine; Visit Provider Internal Medicine | DX: R69 Illness, unspecified (principal) ==

== ENCOUNTER 2019-11-04 02:47 | Outpatient (CLI) | payer BC, SELFPAY ==
[2019-11-04 09:28] LABS: Abs Immature Grans 0.01 10^3/uL (0.0-0.06); Absolute Basophil Count 0.02 10^3/uL (0.0-0.2); Absolute Eosinophil Count 0.14 10^3/uL (0.0-0.7); Absolute Lymphocyte Count 1.16 10^3/uL (1.2-3.4); Absolute Monocyte Count 0.38 10^3/uL (0.1-0.8); Absolute Neutrophil Count 3.94 10^3/uL (1.2-6.7); Basophils % 0.4; Eosinophils % 2.5; HCT 40.3 % (40.0-50.0); HGB 12.9 g/dL (13.5-17.5); Immature Grans % 0.2; Lymphocytes % 20.5; MCH 28.3 pg (27.0-33.0); MCV 88.4 fL (80-95); MPV 8.9 fL (8.0-11.0); Monocytes % 6.7; Neutrophils % 69.7; Nucleated RBC 0 %; Platelet Count 288 10^3/uL (130-400); RBC 4.56 10^6/uL (4.36-5.78); RDW 12.8 % (11.8-14.1); RDW-SD 41.7 fL; WBC 5.65 10^3/uL (4.4-10.8)
[2019-11-04 09:48] LABS: ALT 22 U/L (16-63); AST 21 U/L (15-37); Albumin 3.7 g/dL (3.4-5.0); Alkaline Phosphatase 63 U/L (46-116); Anion Gap 11.1 mmol/L (3-11); BUN 40 mg/dL (7-18); Bilirubin, Total 0.3 mg/dL (0.2-1.0); CO2 25.9 mmol/L (21.0-32.0); CREATININE 1.92 mg/dL (0.70-1.30); Calcium 9.5 mg/dL (8.5-10.1); Chloride 107 mmol/L (98-107); Estimated GFR 35.33 (mL/min/1.73m2); Glucose 109 mg/dL (74-106); Potassium 3.9 mmol/L (3.5-5.1); Sodium 144 mmol/L (136-145); Total Protein 7.3 g/dL (6.4-8.2)
== END 2019-11-04 03:07 ==
PROVIDERS: PCP Internal Medicine; Visit Provider Internal Medicine
DX: C67.9 Malignant neoplasm of bladder, unspecified (principal); C79.10 Secondary malignant neoplasm of unspecified urinary organs
CPT/HCPCS: 36415; 80053; 85025

== ENCOUNTER 2019-12-07 12:14 | Inpatient (IN) | payer BC, SELFPAY ==
[2019-12-07 12:23] VITALS: BP 154/115; PULSE 106; RESP 18; TEMP 37; O2SAT 97
--- NOTE | 2019-12-07 12:26 | W.ED.GENAD ---
Discharge Plan Disposition Patient Disposition: [facility] INPATIENT Condition: Stable Discharge Details Clinical Impression: Hydroureteronephrosis, UTI (urinary tract infection), Chronic constipation, Colitis, Retroperitoneal lymphadenopathy, Pelvic lymphadenopathy, History of bladder carcinoma Admit Date/Time: 12/07/19 18:01 Admit Provider: Marlen Yanez Attending Provider: Marlen Yanez Primary Care Provider: Chucky Cruz ED Provider: Hayley Carl Medical Decision Making 1230 -- 64-year-old male with a history of bladder cancer treated with TURBT and chemotherapy presents with lower back pain for the past 3 days, worse at nighttime. There is mottling to the lower back which appears likely consistent with heating pad directly against skin. There is no evidence of cellulitis or obvious trauma. His back is not tender to palpation in the midline or paraspinal. He is neurovascular intact without focal deficits. Abdomen soft nontender. He has scrotal edema which she states is chronic due to dependent edema and status post his bladder surgery. Differential diagnosis includes muscle strain, spinal stenosis, disc herniation. Concern also for possible bony metastasis. Will obtain CT lumbar spine, give a dose of oxycodone p.o., Toradol IM, and Valium p.o. and reassess. 1450 --patient reassessed and symptoms significantly improved. CT reviewed and notes bilateral hydroureter nephrosis and chronic bladder wall changes likely consistent with his bladder cancer. Also noted stercoral colitis and perirectal and perisigmoid fat infiltration with adenopathy which could be concerning for metastatic disease. Case discussed with Dr. Mcmullen who will review images and recommends CT abdomen and pelvis with oral contrast. 1700 --labs reviewed and note acute on chronic kidney injury with a creatinine of 3.92 and GFR 15. Urinalysis notes UTI. Rocephin ordered. CT notes bilateral hydroureteronephrosis with stercoral colitis consistent with constipation. Images reviewed with [facility] urology who states that patient's enlarged prostate is likely causing urinary retention due to hydroureteronephrosis and stercoral colitis due to constipation. Recommends Chahal catheter placement, IV fluids and enema. 1730 --discussed with hospitalist who accepts patient for admission. Medical Records Medical records reviewed: Yes I reviewed the patient's medical records. Imaging Data Radiologic Study: Radiologist's impression: CT LUMBAR SPINE WO CLINICAL HISTORY: lower back pain, h/o bladder cancer. TECHNIQUE: Imaging Protocol: Axial computed tomography images with coronal and sagittal reformatted images were created and reviewed COMPARISON: No exams were available for comparison FINDINGS: Bones: The last intervertebral disc space is designated the L5/S1 level for the numbering purpose of this examination. The vertebral body heights are well maintained. Alignment is satisfactory. No fracture is seen. T12-L1: No disc herniations or bulges are present. L1-2: No disc herniations or bulges are present. L2-3: No disc herniations or bulges are present. L3-4: Diffuse disc bulge and ligamentum flavum hypertrophy causing mild narrowing of the central spinal canal. L4-5: Diffuse disc bulge and right paracentral disc herniation with ligamentum flavum hypertrophy causing [id number]-vy-rxyqxrte central spinal canal stenosis. There is bilateral neural foraminal narrowing. L5-S1: No disc herniations or bulges are present. Soft Tissues: The visualized SI joints and sacrum are will maintained. The paraspinal soft tissues are unremarkable. Pelvis: Significant retroperitoneal adenopathy concerning for metastatic disease. There is moderately severe bilateral hydronephrosis extending to the level of the urinary bladder. The posterior bladder wall appears thickened. There is a large amount of stool within the dome with thickening of the rectal wall suspicious for stercoral colitis. IMPRESSION: 1. No acute fracture, lytic or sclerotic lesion in the lumbar spine. 2. Multilevel degenerative changes in the lumbar spine resulting in central spinal canal neural foraminal stenosis as described above. 3. Findings suggesting stercoral colitis. 4. Retroperitoneal and pelvic adenopathy concerning for metastatic disease. 5. Bilateral hydronephrosis to the level of the urinary bladder. This may be secondary to a bladder mass. Please correlate with the patient's clinical history. CT Abdomen And Pelvis Without Contrast Exam date and time: 12/07/2019 5:05 PM Age: 64 years old Clinical indication: Other: Constipation, stercoral colitis, assess for sbo; Additional info: H/o bladder CA, assess for colon mets TECHNIQUE: Imaging protocol: Computed tomography of the abdomen and pelvis without contrast. Radiation optimization: All CT scans at this facility use at least one of these dose optimization techniques: automated exposure control; mA and/or kV adjustment per patient size (includes targeted exams where dose is matched to clinical indication); or iterative reconstruction. COMPARISON: CT CHEST/ABD/PEL W 01/22/2020 09:42 FINDINGS: Mediastinal space: Hiatal hernia with reflux of contrast into the distal esophagus. Liver: Subcentimeter hypodensity inferior right hepatic lobe series 2, image 33 incompletely evaluated on this CT. Gallbladder and bile ducts: Normal. No calcified stones. No ductal dilation. Pancreas: Normal. No ductal dilation. Spleen: Normal. No splenomegaly. Adrenals: Normal. No mass. Kidneys and ureters: Bilateral hydroureteronephrosis. Infiltration of the perirenal fat. Markedly dilated ureters with periureteral stranding into the pelvis. Stomach and bowel: Constipation. Contrast within the distal esophagus, stomach, small bowel, cecum and a portion of the right colon. Constipation. Distended rectal vault with thickening of the rectal wall. Normal caliber small bowel. No evidence for bowel obstruction. Appendix: No evidence of appendicitis. Intraperitoneal space: Perirectal and katharine-sigmoidal lymphadenopathy. Katharine rectal and presacral fat infiltration. Stranding of the intrapelvic fat with possible small loculated fluid collections. Retroperitoneal space: Bilateral periureteral fat infiltration extending to involve the retroperitoneum. Vasculature: Atherosclerotic disease. Lymph nodes: Retroperitoneal lymph nodes. Inguinal adenopathy. Mesenteric adenopathy with large lymph nodes of concern for metastatic disease. Enlarged inguinal lymph nodes. Enlarged retroperitoneal lymph nodes. Bladder: Abnormal thickened bladder wall with posterior calcifications. Reproductive: Enlarged prostate. Bones/joints: Degenerative changes of the thoracic and lumbar spine. Multilevel degenerative changes of the thoracic and lumbar spine. Old right posterior rib fractures. Soft tissues: Fat distension of the inguinal canals. Umbilical hernia with omental fat. IMPRESSION: 1. Abnormal bladder wall thickening with associated calcifications consistent with patient's history of bladder carcinoma. Stranding and peripelvic fat infiltration with loculated free fluid and adenopathy consistent with metastatic disease. 2. Bilateral hydroureteronephrosis with perirenal and periureteral fat infiltration consistent with chronic obstruction. Obstruction consistent with bladder carcinoma. 3. Extensive retroperitoneal adenopathy, mesenteric adenopathy, inguinal adenopathy, pelvic sidewall adenopathy, perirectal adenopathy, and katharine-sigmoidal adenopathy. The findings are of concern for metastatic disease from known bladder carcinoma. 4. Distended stool-filled rectum with rectal wall thickening and perirectal and presacral fat infiltration of concern for stercoral colitis. 5. Multiple additional findings as discussed above. Lab Data Lab results reviewed: Yes I reviewed the patient's lab results. Labs: 12/07/19 13:15 Urine - Reflex from Ua Urine Culture - Pending Laboratory Tests Range/Units 12/07/19 12/07/19 12/07/19 13:15 15:45 15:45 WBC (4.4-10.8) 10^3/uL 8.92 RBC (4.36-5.78) 10^6/uL 4.20 L Hgb (13.5-17.5) g/dL 11.7 L Hct (40.0-50.0) % 36.3 L MCV (80-95) fL 86.4 MCH (27.0-33.0) pg 27.9 MCHC (32.0-36.0) % 32.2 RDW (11.8-14.1) % 13.0 Plt Count (130-400) 10^3/uL 350 MPV (8.0-11.0) fL 8.2 Immature Gran % 0.2 Neutrophils % 78.3 Lymphocytes % 14.3 Monocytes % 5.7 Eosinophils % 1.3 Basophils % 0.2 Nucleated RBC % % 0 Absolute Neutrophils (1.2-6.7) 10^3/uL 6.97 H Absolute Lymphocytes (1.2-3.4) 10^3/uL 1.28 Absolute Monocytes (0.1-0.8) 10^3/uL 0.51 Absolute Eosinophils (0.0-0.7) 10^3/uL 0.12 Absolute Basophils (0.0-0.2) 10^3/uL 0.02 Sodium (136-145) mmol/L 142 Potassium (3.5-5.1) mmol/L 3.4 L Chloride (98-107) mmol/L 104 Carbon Dioxide (21.0-32.0) mmol/L 24.6 Anion Gap (3-11) mmol/L 13.4 H BUN (7-18) mg/dL 43 H Creatinine (0.70-1.30) mg/dL 3.92 H* Estimated GFR/1.73 m2 (mL/min/1.73m2) 15.45 Glucose (74-106) mg/dL 101 Calcium (8.5-10.1) mg/dL 9.8 Total Bilirubin (0.2-1.0) mg/dL 0.3 AST (15-37) U/L 41 H ALT (16-63) U/L 22 Alkaline Phosphatase (46-116) U/L 81 Total Protein (6.4-8.2) g/dL 7.8 Albumin (3.4-5.0) g/dL 3.8 Lipase (73-393) U/L 105 Urine Color (Yellow) Yellow Urine Clarity (Clear) Sl cloudy Urine pH (5-8) 5.5 Ur Specific [place] (1.005-1.025) 1.015 Urine Protein (Negative) mg/dL Trace H Urine Ketones (Negative) mg/dL Negative Urine Blood (Negative) Moderate H Urine Nitrite (Negative) Negative Urine Bilirubin (Negative) Negative Urine Urobilinogen (Up TO 0.2) EU/dL 0.2 Ur Leukocyte Esterase (Negative) Moderate H Urine RBC (0-2) HPF 20-50 H Urine WBC (0-5) HPF >50 H Ur Epithelial Cells (Negative) HPF Few Urine Crystals (Negative) HPF Negative Urine Bacteria (Negative) HPF Moderate Urine Casts (Negative) LPF Negative Urine Mucus (Negative) Negative Ur Culture Indicated? Yes Urine Glucose (Negative) mg/dL Negative HPI General Mode of arrival: ambulatory. Date/Time Provider Initiated Documentation: 12/07/19 12:17. Limitations to Documentation: no limitations. Information obtained by: patient. HPI Narrative: Patient is a 64-year-old male with a history of bladder cancer treated with chemotherapy and TURBT presents for lower back pain for the past 3 days. Patient states he hurt his back 2 months ago while playing golf but states the pain resolved. He states he played golf again a few days ago and feels he may have strained his back again. He states the pain is worse with lying down, most specifically at nighttime when trying to sleep. He took Tylenol without relief. He took oxycodone that he had leftover from a previous urologic procedure with some relief last night. He denies any fall onto his back. He states he has been using heating pad to his back directly on his skin near 24 hours a day. He states his noticed some skin changes to his lower back after he had the heating pad continually against his skin. He denies any fever, nausea, vomiting, abdominal pain, saddle anesthesia, dysuria, urinary retention or incontinence, bowel incontinence, leg pain weakness or numbness. Related Data Home Medications Medication Instructions Recorded Confirmed diltiazem HCl 240 mg PO QAM 12/02/16 12/07/19 hydrochlorothiazide 25 mg PO DAILY 12/02/16 12/07/19 lisinopril [Zestril] 30 mg PO DAILY 12/02/16 12/07/19 famotidine 20 mg PO PRN PRN 10/23/17 12/07/19 oxybutynin chloride 5 mg PO TID PRN #15 tab 02/03/19 12/07/19 phenazopyridine [Pyridium] 200 mg PO TID PRN #12 tab 02/03/19 12/07/19 oxycodone 5 mg capsule 5 - 10 mg PO QHS PRN #10 cap MDD 12/02/19 12/07/19 10 mg Previous Rx's Medication Instructions Recorded oxybutynin chloride 5 mg PO TID PRN #15 tab 02/03/19 phenazopyridine [Pyridium] 200 mg PO TID PRN #12 tab 02/03/19 oxycodone 5 mg capsule 5 - 10 mg PO QHS PRN #10 cap MDD 12/02/19 10 mg Allergies Allergy/AdvReac Type Severity Reaction Status Date / Time No Known Allergies Allergy Unverified 12/07/19 12:30 Review of Systems All systems reviewed & are unremarkable except as noted in HPI and below Constitutional Constitutional: Reports as per HPI, Denies chills and Denies fever(s) Eyes Eyes: Denies blurry vision ENT Ears, Nose, Mouth, and Throat: Denies dizziness, Denies sore throat and Denies throat swelling Cardiovascular Cardiovascular: Denies chest pain and Denies dyspnea Respiratory Respiratory: Denies cough and Denies dyspnea Gastrointestinal Gastrointestinal: Denies abdominal pain, Denies diarrhea and Denies vomiting Genitourinary Genitourinary: Denies hematuria and Denies dysuria Musculoskeletal Musculoskeletal: Reports back pain and Denies numbness Integumentary/Breasts Skin/Breast: Denies lesions and Denies rash Neurologic Neurologic: Denies dizziness, Denies localized weakness and Denies numbness Allergic/Immunologic Allergic/Immunologic: Denies throat swelling [facility] Medical History (Updated 12/07/19 @ 21:26 by Marlen Yanez MD) Anxiety CKD (chronic kidney disease), stage III Hematuria Hx of bladder cancer Hypertension Surgical History (Updated 02/03/19 @ 09:42 by Chaya Tarango) Hx of cystoscopy TURBT Family History (Updated 12/07/19 @ 21:22 by Marlen Yanez MD) Father Prostate cancer Hypertension Brother Prostate cancer Paternal Grandfather Heart disease Stroke Paternal Uncle Cancer brain tumor Paternal Grandmother Cancer ovarian cancer Social History (Updated 12/07/19 @ 20:24 by Marlen Yanez MD) Smoking/Tobacco Use Status: Former Tobacco Use Quit Date: 03/19/97 Alcohol Intake: former Drug use: Never Substance use type: does not use Do you feel safe at home: Yes Do you feel safe in your relationship?: Yes Exam Const General: cooperative and no acute distress Orientation: alert, awake and oriented x3 HENMT Head: normal to inspection Face and sinus: normal facial exam Eyes General: appearance normal, both eyes and all related structures EOM: EOM intact bilaterally Neck Neck: normal visual inspection and No submandibular swelling Lymphatic: no lymphadenopathy noted Chest Chest: normal inspection of the chest and no tenderness Resp Effort & Inspection: normal respiratory effort and able to speak in complete sentences Auscultation: clear to auscultation bilaterally Cardio Rate: regular rate Rhythm: regular rhythm GI Inspection: normal to inspection Palpation: soft, not firm, not rigid and nontender Auscultation: normal bowel sounds Scrotum: no ecchymosis, edematous bilaterally (Chronic, nontender) and not erythematous Back/Spine/Pelvis Back: other (Mottling noted across lower back c/w skin changes from heating pad) Thoracic/Lumbar Spine: No paraspinal tenderness, No thoracic spinal tenderness and No lumbar spinal tenderness Skin General skin exam: no rashes or lesions noted Neuro General: patient alert, patient awake and patient oriented x3 Cognition: normal cognition Speech: speech normal Motor: muscle tone normal throughout and strength 5/5 throughout Sensory Exam: no sensory deficits noted DTR's: Rt Patellar: 1+, Lt Patellar: 1+, Rt Ankle: 1+ and Lt Ankle: 1+ Plantar Reflexes: Equivocal: bilateral (negative babinski b/l ) Extrem General: normal to inspection, full ROM, capillary refill normal, no calf tenderness bilaterally and no edema Other: Bilateral DP/PT pulses intact. Psych Appearance: grossly normal Mental Status: mental status grossly normal Speech and Movement: speech and movement normal Affect: normal affect
[2019-12-07] MEDS: Ketorolac 60 MG/2 ML VIAL IM (13:13)
[2019-12-07] MEDS: diazePAM 5 MG TAB PO (13:13)
[2019-12-07] MEDS: oxyCODONE 10 MG TAB PO (13:14)
[2019-12-07 13:38] LABS: Bilirubin Negative (Negative); Blood Moderate (Negative); Clarity Sl Cloudy (Clear); Glucose Negative (Negative); Ketones Negative (Negative); Leukocyte Esterase Moderate (Negative); Nitrite Negative (Negative); Specific Gravity 1.015 (1.005-1.025); Urobilinogen 0.2 EU/dL (Up TO 0.2); pH 5.5 (5-8)
[2019-12-07 13:51] LABS: Bacteria Moderate HPF (Negative); Crystals Negative HPF (Negative); Epithelial Cells Few HPF (Negative); Mucus Negative (Negative); RBC 20-50 HPF (0-2); WBC >50 HPF (0-5)
[2019-12-07 13:52] LABS: C & S Indicated? Yes; Casts Negative LPF (Negative)
--- NOTE | 2019-12-07 14:00 | DI.CT_ITS ---
EXAM: CT LUMBAR SPINE WO CLINICAL HISTORY: lower back pain, h/o bladder cancer. TECHNIQUE: Imaging Protocol: Axial computed tomography images with coronal and sagittal reformatted images were created and reviewed COMPARISON: No exams were available for comparison FINDINGS: Bones: The last intervertebral disc space is designated the L5/S1 level for the numbering purpose of this examination. The vertebral body heights are well maintained. Alignment is satisfactory. No frac ture is seen. T12-L1: No disc herniations or bulges are present. L1-2: No disc herniations or bulges are present. L2-3: No disc herniations or bulges are present. L3-4: Diffuse disc bulge and ligamentum flavum hypertrophy causing mild narrowing of the central spi nal canal. L4-5: Diffuse disc bulge and right paracentral disc herniation with ligamentum flavum hypertrophy ca using [id number] central spinal canal stenosis. There is bilateral neural foraminal narrowing. L5-S1: No disc herniations or bulges are present. Soft Tissues: The visualized SI joints and sacrum are will maintained. The paraspinal soft tissues a re unremarkable. Pelvis: Significant retroperitoneal adenopathy concerning for metastatic disease. There is moderatel y severe bilateral hydronephrosis extending to the level of the urinary bladder. The posterior bladd er wall appears thickened. There is a large amount of stool within the dome with thickening of the r ectal wall suspicious for stercoral colitis. IMPRESSION: 1. No acute fracture, lytic or sclerotic lesion in the lumbar spine. 2. Multilevel degenerative changes in the lumbar spine resulting in central spinal canal neural ronn inal stenosis as described above. 3. Findings suggesting stercoral colitis. 4. Retroperitoneal and pelvic adenopathy concerning for metastatic disease. 5. Bilateral hydronephrosis to the level of the urinary bladder. This may be secondary to a bladder mass. Please correlate with the patient's clinical history. RADIATION DOSE DELIVERED: 646.02mGy.cm Total DLP 646.02mGy.cm Total DLP DATA REPOSITORY: All CT scans at this facility are submitted to the National Radiology Data Registry (NRDR) Dose Index Registry (DIR) with the [employer] (ACR). RADIATION OPTIMIZATION: All CT scans at this facility use at least one of these dose optimization te chniques: automated exposure control; mA and/or kV adjustment per patient size (includes targeted exa ms where dose is matched to clinical indication); or iterative reconstruction.
--- NOTE | 2019-12-07 14:28 | DI.VRAD_ITS ---
Addendum created by Mel Brar MD on 12/07/2019 2:33:07 PM EDT: THIS REPORT CONTAINS FINDINGS THAT MAY BE CRITICAL TO PATIENT CARE. The findings were verbally communicated via telephone conference with carly Bauman at 2:31 PM EDT on 12/07/2019. The findings were acknowledged and understood. Initial report created on 12/07/2019 2:27:47 PM EDT: PROCEDURE INFORMATION: Exam: CT Lumbar Spine Without Contrast Exam date and time: 12/07/2019 1:58 PM Age: 64 years old Clinical indication: Other: Lower back pain, h/o bladder cancer TECHNIQUE: Imaging protocol: Computed tomography images of the lumbar spine without contrast. Radiation optimization: All CT scans at this facility use at least one of these dose optimization techniques: automated exposure control; mA and/or kV adjustment per patient size (includes targeted exams where dose is matched to clinical indication); or iterative reconstruction. COMPARISON: No relevant prior studies available. FINDINGS: Vertebrae: Multilevel degenerative changes of the lumbar spine. L1-L2: No disc herniation. No spinal stenosis. No neural foraminal narrowing. Facet arthropathy. L2-L3: Facet arthropathy. Broad-based posterior disc bulge extending into the neural foramina bilaterally. L3-L4: Broad-based posterior disc bulge and ligamentum flavum buckling mildly narrowing the spinal canal. The neural foramina are patent. L4-L5: Suspect broad-based posterior disc and right paracentral disc bulge bulge with ligamentum flavum buckling resulting in moderate spinal stenosis. The disc extends into the neural foramina bilaterally. The disc is intimately associated with both exiting nerve roots. L5-S1: No evidence for fracture. No significant degenerative disc changes. The spinal canal and neural foramina are patent. Other bones/joints: The bony neural foramina and spinal canal are patent. Kidneys and ureters: Right hydronephrosis. Left hydronephrosis. Calcifications within the urinary bladder. Thickened posterior bladder wall. Bilateral hydroureter extending to the bladder. Large solid stool load. Perirectal fat infiltration and infiltration of the presacral fat. Perirectal lymphadenopathy. Thickened bladder wall. Katharine-sigmoidal adenopathy. Stranding of the mesenteric fat in the pelvis. Possible trace fluid. Vasculature: Atherosclerotic disease. Soft tissues: Unremarkable. IMPRESSION: 1. Multilevel degenerative changes of the lumbar spine as discussed in detail above. 2. Abnormal thickened bladder wall with calcification. Bilateral hydroureteronephrosis extending to the urinary bladder. 3. Stercoral colitis. 4. Perirectal and katharine-sigmoidal fat infiltration with adenopathy. Stranding of the mid mesenteric fat in the pelvis. Possible loculated areas of free fluid. Findings are of concern for metastatic disease. 5. Additional findings as discussed above. Dictated and Authenticated by: Mel Brar MD. Ordering:ZAHEER Hardy MD
--- NOTE | 2019-12-07 15:15 | DI.CT_ITS ---
EXAM: CT ABDOMEN PELVIS WO CLINICAL HISTORY: constipation, stercoral colitis, assess for SBO. TECHNIQUE: Imaging Protocol: Axial computed tomography images with coronal and sagittal reformatted images were created and reviewed. COMPARISON: CT ABD PELVIS WITH CONTRAST from 03/22/[address] CHEST/ABD/PEL W from 07/28/2019 FINDINGS: ABDOMEN: Lung Bases: Small hiatal hernia with reflux of contrast into the distal esophagus. Liver: Normal density. The hypodense lesion seen in the caudal aspect of the right lobe of the liver is stable compared to the prior examination. This appears to represent a cyst. Gallbladder and biliary tract: No radiodense calculus or biliary ductal dilation. Pancreas: Normal density, no abnormal calcifications or inflammatory process. Spleen: Normal. Kidneys: Normal size, contour and axis.No nephrolithiasis. Since the most recent examination there i s developed bilateral hydroureteronephrosis. The dilatation extends all the way to the urinary bladd er. This may be secondary to obstruction from the patient's known bladder cancer. No masses seen. Adrenal glands: No mass is seen. Lymph nodes: Since the prior examination, there has developed extensive mesenteric retroperitoneal an d inguinal adenopathy. This likely is metastatic related to the patient's known bladder carcinoma. Abdominal Aorta: Abdominal portion non-dilated. Atherosclerosis. PELVIS: Bladder:Bladder wall thickening particularly at the base. This likely reflects the patient's known b ladder carcinoma. Calcifications are seen within the urinary bladder. Bowel: No obstruction or bowel wall thickening. No evidence of appendicitis. There is stool seen thr oughout the colon consistent with constipation. The rectal vault is distended with thickening of the rectal wall suggesting stercoral colitis. Peritoneal cavity: There may be a loculated fluid collection in the pelvis adjacent to the right uret er. Reproductive organs: Enlarged prostate gland. Bones: Degenerative changes seen in the visualized thoracic and lumbar spine. Soft Tissues: Umbilical hernia containing fat. IMPRESSION: 1. Urinary bladder wall thickening with associated calcifications delete consistent with patient's hi story of bladder carcinoma. 2. Extensive abdominal pelvic adenopathy consistent with metastatic disease. 3. Bilateral hydroureteronephrosis distant with obstruction most likely due to the patient's bladder carcinoma. 4. Findings suggestive of stercoral colitis. RADIATION DOSE DELIVERED: 769.45mGy.cm Total DLP DATA REPOSITORY: All CT scans at this facility are submitted to the National Radiology Data Registry (NRDR) Dose Index Registry (DIR) with the [employer] (ACR). RADIATION OPTIMIZATION: All CT scans at this facility use at least one of these dose optimization te chniques: automated exposure control; mA and/or kV adjustment per patient size (includes targeted exa ms where dose is matched to clinical indication); or iterative reconstruction.
[2019-12-07 15:55] LABS: Abs Immature Grans 0.02 10^3/uL (0.0-0.06); Absolute Basophil Count 0.02 10^3/uL (0.0-0.2); Absolute Eosinophil Count 0.12 10^3/uL (0.0-0.7); Absolute Lymphocyte Count 1.28 10^3/uL (1.2-3.4); Absolute Monocyte Count 0.51 10^3/uL (0.1-0.8); Absolute Neutrophil Count 6.97 10^3/uL (1.2-6.7); Basophils % 0.2; Eosinophils % 1.3; HCT 36.3 % (40.0-50.0); HGB 11.7 g/dL (13.5-17.5); Immature Grans % 0.2; Lymphocytes % 14.3; MCH 27.9 pg (27.0-33.0); MCHC 32.2 % (32.0-36.0); MCV 86.4 fL (80-95); MPV 8.2 fL (8.0-11.0); Monocytes % 5.7; Neutrophils % 78.3; Nucleated RBC 0 %; Platelet Count 350 10^3/uL (130-400); RDW-SD 40.6 fL; WBC 8.92 10^3/uL (4.4-10.8)
[2019-12-07 16:09] LABS: ALT 22 U/L (16-63); AST 41 U/L (15-37); Albumin 3.8 g/dL (3.4-5.0); Alkaline Phosphatase 81 U/L (46-116); Anion Gap 13.4 mmol/L (3-11); BUN 43 mg/dL (7-18); Bilirubin, Total 0.3 mg/dL (0.2-1.0); CO2 24.6 mmol/L (21.0-32.0); Calcium 9.8 mg/dL (8.5-10.1); Chloride 104 mmol/L (98-107); Estimated GFR 15.45 (mL/min/1.73m2); Glucose 101 mg/dL (74-106); Lipase 105 U/L (73-393); Potassium 3.4 mmol/L (3.5-5.1); Sodium 142 mmol/L (136-145); Total Protein 7.8 g/dL (6.4-8.2)
[2019-12-07 16:11] LABS: CREATININE 3.92 mg/dL (0.70-1.30)
[2019-12-07] MEDS: Normal Saline 500 ML IV (16:41)
[2019-12-07 16:51] VITALS: BP 179/106; PULSE 93; RESP 18; TEMP 36.9; O2SAT 100
--- NOTE | 2019-12-07 17:36 | DI.VRAD_ITS ---
PROCEDURE INFORMATION: Exam: CT Abdomen And Pelvis Without Contrast Exam date and time: 12/07/2019 5:05 PM Age: 64 years old Clinical indication: Other: Constipation, stercoral colitis, assess for sbo; Additional info: H/o bladder CA, assess for colon mets TECHNIQUE: Imaging protocol: Computed tomography of the abdomen and pelvis without contrast. Radiation optimization: All CT scans at this facility use at least one of these dose optimization techniques: automated exposure control; mA and/or kV adjustment per patient size (includes targeted exams where dose is matched to clinical indication); or iterative reconstruction. COMPARISON: CT CHEST/ABD/PEL W 01/22/2020 09:42 FINDINGS: Mediastinal space: Hiatal hernia with reflux of contrast into the distal esophagus. Liver: Subcentimeter hypodensity inferior right hepatic lobe series 2, image 33 incompletely evaluated on this CT. Gallbladder and bile ducts: Normal. No calcified stones. No ductal dilation. Pancreas: Normal. No ductal dilation. Spleen: Normal. No splenomegaly. Adrenals: Normal. No mass. Kidneys and ureters: Bilateral hydroureteronephrosis. Infiltration of the perirenal fat. Markedly dilated ureters with periureteral stranding into the pelvis. Stomach and bowel: Constipation. Contrast within the distal esophagus, stomach, small bowel, cecum and a portion of the right colon. Constipation. Distended rectal vault with thickening of the rectal wall. Normal caliber small bowel. No evidence for bowel obstruction. Appendix: No evidence of appendicitis. Intraperitoneal space: Perirectal and larry-sigmoidal lymphadenopathy. Larry rectal and presacral fat infiltration. Stranding of the intrapelvic fat with possible small loculated fluid collections. Retroperitoneal space: Bilateral periureteral fat infiltration extending to involve the retroperitoneum. Vasculature: Atherosclerotic disease. Lymph nodes: Retroperitoneal lymph nodes. Inguinal adenopathy. Mesenteric adenopathy with large lymph nodes of concern for metastatic disease. Enlarged inguinal lymph nodes. Enlarged retroperitoneal lymph nodes. Bladder: Abnormal thickened bladder wall with posterior calcifications. Reproductive: Enlarged prostate. Bones/joints: Degenerative changes of the thoracic and lumbar spine. Multilevel degenerative changes of the thoracic and lumbar spine. Old right posterior rib fractures. Soft tissues: Fat distension of the inguinal canals. Umbilical hernia with omental fat. IMPRESSION: 1. Abnormal bladder wall thickening with associated calcifications consistent with patient's history of bladder carcinoma. Stranding and peripelvic fat infiltration with loculated free fluid and adenopathy consistent with metastatic disease. 2. Bilateral hydroureteronephrosis with perirenal and periureteral fat infiltration consistent with chronic obstruction. Obstruction consistent with bladder carcinoma. 3. Extensive retroperitoneal adenopathy, mesenteric adenopathy, inguinal adenopathy, pelvic sidewall adenopathy, perirectal adenopathy, and larry-sigmoidal adenopathy. The findings are of concern for metastatic disease from known bladder carcinoma. 4. Distended stool-filled rectum with rectal wall thickening and perirectal and presacral fat infiltration of concern for stercoral colitis. 5. Multiple additional findings as discussed above. Dictated and Authenticated by: Mel Brar MD. Ordering:ZAHEER Hardy MD
[2019-12-07] MEDS: cefTRIAXone 1 GM/50 ML BAG IVPB (18:03)
[2019-12-07] MEDS: LORazepam 2 MG/ML VIAL 1 MG IVP (18:20)
[2019-12-07] MEDS: Lidocaine 2% Jelly 6 ML SYR (18:30)
[2019-12-07 19:28] VITALS: BP 187/99; PULSE 77; RESP 18; TEMP 37; O2SAT 97
--- NOTE | 2019-12-07 20:14 | HPE_ITS ---
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 Per urology at [facility], the obstruction could be at the level of prostate, but bladder cancer could also cause UVJ obstruction, which was not specifically seen on imaging. We will trial the patient on IVF and with a quinn catheter. If his Cr does not improve, [facility] IR will have to be consulted for bilateral nephrostomy tube placement. (2) Acute kidney injury superimposed on chronic kidney disease: Status: Acute Assessment and plan: Due to above - as above Also, hold HCTZ and jacquie-i. (3) Obstructive uropathy: Status: Acute Assessment and plan: As above (4) Malignant neoplasm metastatic to bladder: Status: Chronic Assessment and plan: Having completed chemo and awaiting initiation on immunotherapy. Follows with [facility] hem/onc. As above - bladder cancer could be contributing to obstructive uropathy. (5) Constipation: Status: Acute Assessment and plan: Causing stercoral colitis. Start an aggressive bowel regimen that the patient should also follow on disc harge. (6) UTI (urinary tract infection): Status: Suspected Assessment and plan: Present on admission. The patient, however, denies urinary symptoms - it is possible his UA is dirty due to bladder cancer. Continue ceftriaxone initiated in the ED. Await urine culture. (7) Essential hypertension: Status: Chronic Assessment and plan: BP quite elevated here (187/99). Will lower rate of IVF and write for prn IV lopressor. Will give 1 dose of PO lopressor now. Given the fact that we are holding HCTZ and jacquie-i, he might need to have an alternative agent started. (8) Hypokalemia: Status: Acute Assessment and plan: Replete, check magnesium (9) Hematuria: Status: Acute Assessment and plan: Traumatic post quinn insertion. Will monitor. Hold heparin. Given the color in the quinn now, doubt that he will require CBI. If persists, discuss with urology at [facility] (inpatient urology on vacation). (10) Back pain: Status: Acute Assessment and plan: Likely due to hydronephrosis. 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 ED c/o 3 days of back pain. He states the back pain has actually been going on, off and on, longer than that, but in the last 3 days it has gotten worse. The back pain is in the lower back, on both sides. He has tried taking tylenol and oxycodone for it, but with insufficient relief. His last BM was two days ago. His workup revealed ЕКАТЕРИНА with Cr of 3.92 (up from 1.92 on 11/04/2019), B hydroureteronephrosis and stercoral colitis. The patient was also found to have a UTI and was started on ceftriaxone. He specifically denies urinary symptoms. His imaging was reviewed by [facility] urology: it was felt that the patient's obstruction causing the hydroureteronephrosis was at the level of prostate. He was recommended to be initiated on IVF and to have a quinn catheter placed. 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 The patient notes that he has has hematuria ever since the quinn catheter was inserted, but that it looks ok to him and that he usually does not bleed long. The hospitalists were asked to admit the patient for further care. Review of Systems All systems reviewed & are unremarkable except as noted in HPI and below [facility] Medical History (Updated 12/07/19 @ 21:26 by Marlen Yanez MD) Anxiety CKD (chronic kidney disease), stage III Hematuria Hx of bladder cancer Hypertension Surgical History (Updated 02/03/19 @ 09:42 by Chaya Tarango) Hx of cystoscopy TURBT Family History (Updated 12/07/19 @ 21:22 by Marlen Yanez MD) Father Prostate cancer Hypertension Brother Prostate cancer Paternal Grandfather Heart disease Stroke Paternal Uncle Cancer brain tumor Paternal Grandmother Cancer ovarian cancer Social History (Updated 12/07/19 @ 20:24 by Marlen Yanez MD) Smoking/Tobacco Use Status: Former Tobacco Use Quit Date: 03/19/97 Alcohol Intake: former Drug use: Never Substance use type: does not use Do you feel safe at home: Yes Do you feel safe in your relationship?: Yes Meds Home Medications and Allergies Home Medications Medication Instructions Recorded Confirmed Type diltiazem HCl 240 mg PO QAM 12/02/16 12/07/19 History hydrochlorothiazide 25 mg PO DAILY 12/02/16 12/07/19 History lisinopril [Zestril] 30 mg PO DAILY 12/02/16 12/07/19 History famotidine 20 mg PO PRN PRN 10/23/17 12/07/19 History oxybutynin chloride 5 mg PO TID PRN #15 tab 02/03/19 12/07/19 Rx phenazopyridine [Pyridium] 200 mg PO TID PRN #12 tab 02/03/19 12/07/19 Rx oxycodone 5 mg capsule 5 - 10 mg PO QHS PRN #10 cap MDD 12/02/19 12/07/19 Rx 10 mg Allergies Allergy/AdvReac Type Severity Reaction Status Date / Time No Known Allergies Allergy Unverified 12/07/19 12:30 Exam Narrative Exam Narrative: General: Very pleasant middle-aged male, laying comfortably in bed, conversant Neurological: A&OX3, no focal deficits Psychiatric: Appropriate speech pattern/content Skin: Visible skin intact HEENT: Atraumatic, normocephalic, EOMI, MMM, clear oropharynx, no submandibular or cervical lymphadenopathy, no goiter or JVD Cardiovascular: RRR, no m/r/g Lungs: CTAB Gastrointestinal: soft, nontender, nondistended, + BS Genitourinary: Has a quinn - leiva red urine, clearing up in the tubing Extremities: no e/c/c BLE's, 2+ pedal pulses B Results Imaging Additional studies: CT lumbar spine: 1. No acute fracture, lytic or sclerotic lesion in the lumbar spine. 2. Multilevel degenerative changes in the lumbar spine resulting in central spinal canal neural foraminal stenosis as described above. 3. Findings suggesting stercoral colitis. 4. Retroperitoneal and pelvic adenopathy concerning for metastatic disease. 5. Bilateral hydronephrosis to the level of the urinary bladder. This may be secondary to a bladder mass. Please correlate with the patient's clinical history. CT abdomen/pelvis: 1. Urinary bladder wall thickening with associated calcifications delete consistent with patient's history of bladder carcinoma. 2. Extensive abdominal pelvic adenopathy consistent with metastatic disease. 3. Bilateral hydroureteronephrosis distant with obstruction most likely due to the patient's bladder carcinoma. 4. Findings suggestive of stercoral colitis. Labs Result diagrams: 12/07/19 15:45 12/07/19 15:45 Labs: Laboratory Results - last 24 hr 12/07/19 12/07/19 12/07/19 13:15 15:45 15:45 WBC 8.92 RBC 4.20 L Hgb 11.7 L Hct 36.3 L MCV 86.4 MCH 27.9 MCHC 32.2 RDW 13.0 Plt Count 350 MPV 8.2 Immature Gran % 0.2 Neutrophils % 78.3 Lymphocytes % 14.3 Monocytes % 5.7 Eosinophils % 1.3 Basophils % 0.2 Nucleated RBC % 0 Absolute Neutrophils 6.97 H Absolute Lymphocytes 1.28 Absolute Monocytes 0.51 Absolute Eosinophils 0.12 Absolute Basophils 0.02 Sodium 142 Potassium 3.4 L Chloride 104 Carbon Dioxide 24.6 Anion Gap 13.4 H BUN 43 H Creatinine 3.92 H* Estimated GFR/1.73 m2 15.45 Glucose 101 Calcium 9.8 Total Bilirubin 0.3 AST 41 H ALT 22 Alkaline Phosphatase 81 Total Protein 7.8 Albumin 3.8 Lipase 105 Urine Color Yellow Urine Clarity Sl cloudy Urine pH 5.5 Ur Specific Willet 1.015 Urine Protein Trace H Urine Ketones Negative Urine Blood Moderate H Urine Nitrite Negative Urine Bilirubin Negative Urine Urobilinogen 0.2 Ur Leukocyte Esterase Moderate H Urine RBC 20-50 H Urine WBC >50 H Ur Epithelial Cells Few Urine Crystals Negative Urine Bacteria Moderate Urine Casts Negative Urine Mucus Negative Ur Culture Indicated? Yes Urine Glucose Negative Last Vital Signs Temp 37 C 12/07/19 19:28 Pulse 77 12/07/19 19:28 Resp 18 12/07/19 19:28 BP 187/99 H 12/07/19 19:28 Pulse Ox 97 12/07/19 19:28 COVID-19 Screening Have you,or household,traveled outside [place] in last 14 days?: No Had IN PERSON contact w/suspected or confirmed C-19 person: No
[2019-12-07] MEDS: Heparin 5,000 UNITS/ML VIAL 5000 UNITS SC (20:27)
[2019-12-07] MEDS: Docusate Sodium 100 MG CAP PO (20:27)
[2019-12-07] MEDS: oxyCODONE 5 mg/Acetaminophen 325 mg TAB 1 TAB PO (20:27)
[2019-12-07] MEDS: Senna TAB 1 TAB PO (20:27)
[2019-12-07] MEDS: POTASSIUM CHLORIDE/0.9% NACL 1,000 ML 150 MEQ IV (20:27)
[2019-12-07] MEDS: Bisacodyl 10 MG SUPP PR (21:03)
[2019-12-07] MEDS: Tamsulosin 0.4 MG CAPCR PO (21:03)
[2019-12-07] MEDS: Metoprolol 12.5 MG TAB PO (22:00)
[2019-12-07 22:22] LABS: Creatine Kinase 111 U/L (39-308)
[2019-12-07 23:29] VITALS: BP 135/80; PULSE 71; RESP 18; TEMP 36.4; O2SAT 98
[2019-12-08 04:00] VITALS: BP 135/91; PULSE 72; RESP 18; TEMP 36.8; O2SAT 98
[2019-12-08] MEDS: POTASSIUM CHLORIDE/0.9% NACL 1,000 ML 150 MEQ IV (05:09)
[2019-12-08 06:46] LABS: Abs Immature Grans 0.02 10^3/uL (0.0-0.06); Absolute Basophil Count 0.01 10^3/uL (0.0-0.2); Absolute Eosinophil Count 0.17 10^3/uL (0.0-0.7); Absolute Monocyte Count 0.59 10^3/uL (0.1-0.8); Absolute Neutrophil Count 5.37 10^3/uL (1.2-6.7); Basophils % 0.1; Eosinophils % 2.4; HCT 30.8 % (40.0-50.0); HGB 9.9 g/dL (13.5-17.5); Immature Grans % 0.3; Lymphocytes % 12.7; MCHC 32.1 % (32.0-36.0); MCV 87.3 fL (80-95); MPV 8.6 fL (8.0-11.0); Monocytes % 8.4; Neutrophils % 76.1; Nucleated RBC 0 %; Platelet Count 288 10^3/uL (130-400); RBC 3.53 10^6/uL (4.36-5.78); RDW 13.2 % (11.8-14.1); RDW-SD 41.4 fL; WBC 7.06 10^3/uL (4.4-10.8)
[2019-12-08 07:14] LABS: ALT 19 U/L (16-63); AST 36 U/L (15-37); Alkaline Phosphatase 64 U/L (46-116); BUN 45 mg/dL (7-18); Bilirubin, Direct 0.07 mg/dL (0.00-0.20); Bilirubin, Total 0.3 mg/dL (0.2-1.0); Calcium 8.6 mg/dL (8.5-10.1); Chloride 106 mmol/L (98-107); Estimated GFR 16.02 (mL/min/1.73m2); Glucose 122 mg/dL (74-106); Magnesium 1.6 mg/dL (1.8-2.4); Potassium 4.3 mmol/L (3.5-5.1); Sodium 140 mmol/L (136-145); Total Protein 6.2 g/dL (6.4-8.2)
[2019-12-08 07:50] VITALS: BP 153/91; PULSE 78; RESP 19; TEMP 36.9; O2SAT 99
[2019-12-08] MEDS: Famotidine 20 MG TAB PO (08:00)
[2019-12-08] MEDS: dilTIAZem CD 120 MG CAPCR 240 MG PO (08:00)
[2019-12-08] MEDS: Senna TAB 1 TAB PO (08:01)
[2019-12-08] MEDS: Docusate Sodium 100 MG CAP PO (08:01)
[2019-12-08] MEDS: MAGNESIUM SULFATE 1 GM/100 ML BAG IVPB (08:01)
[2019-12-08] MEDS: Polyethylene Glycol 3350 17 GM PACKET PO (08:01)
[2019-12-08] MEDS: MAGNESIUM SULFATE 4 GM/100 ML BAG IVPB (10:28)
--- NOTE | 2019-12-08 10:35 | PDOC.CMIN ---
- If Service Date Differs Date of service: 12/08/19 Time of Service: 10:35 Care Management Initial Assess REASON FOR HOSPITALIZATION:: Hydroureteronephrosis PAST MEDICAL HISTORY/PAST SURGICAL HISTORY:: Medical History (Updated 12/07/19 @ 21:26 by Marlen Yanez MD). Anxiety. CKD (chronic kidney disease), stage III. Hematuria. Hx of bladder cancer. Hypertension. Surgical History (Updated 02/03/19 @ 09:42 by Chaya Tarango). Hx of cystoscopy. TURBT PREVIOUS FUNCTIONAL STATUS/SOCIAL/FAMILY SUPPORTS:: Joseph lives with his Brandi in a single family home in [place], [place] 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 Joseph has 3 children and proudly shared their career choices with CM. Joseph enjoys hunting and fishing and describes himself as being very active. CURRENT FUNCTIONAL STATUS:: Joseph was sitting up in bed [place] [facility] [place] CM met with him. He shared that he is very pleaseed with the care he receives at both [facility] and the [facility]. He expects he will have a Urologivcal procedure when he gets to . ADVANCE DIRECTIVES:: None on file Has patient been provided with info about the portal/API?: No Did the patient sign up for the portal?: No CODE STATUS:: Full Code INSURANCE COVERAGE / FINANCIAL ISSUES:: MARJORIE OTT CURRENT HOME/COMMUNITY SERVICES/EQUIPMENT:: none PRIMARY CARE PHYSICIAN:: Chucky Cruz POTENTIAL DISCHARGE NEEDS:: Follow up with PCP and discharge plan of care established at [facility] PATIENT/FAMILY EDUCATION NEEDS:: Discharge plan, limitations, follow up plan, Ask Me Three TRANSPORTATION:: via ambulance coordinated by nursing supervisor travel trailer. PLAN:: Joseph will be discharged [place] [facility] [place] bilateral [place] placements. He will transport via ambulance and follow up with the discharge plans of the poviders at that facility.
--- NOTE | 2019-12-08 11:13 | W.PM.DS.N ---
Date of service: 12/08/19 Time of Service: 11:13 DS: Diagnosis Discharge Diagnosis (1) Hydroureteronephrosis: Start date: 12/08/19 Start time: 11:13 Status: Acute Asessment and Plan: This gentlemen has bladder cancer, obstruction could be at the level of prostate, but bladder cancer could also cause UVJ obstruction, which was not specifically seen on imaging. Bilateral, and based on the CT imaging, likely chronic. Overnight provider spoke with [facility] regarding patient, they recommend IVF with catheter placement. Creatinine did not improve overnight. [facility] called this morning Urologist Dr. Sherman accepting patient on service, patient is being transferred to [facility] for bilateral nephorostomy tube placement and admission following IR. 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 Follows with [facility] hem/onc. As above - bladder cancer could be contributing to obstructive uropathy. (5) Constipation: Start date: 12/08/19 Start time: 11:19 Status: Resolved Asessment and Plan: Diarrhea this am. He was given multiple modalities to treat constipation (6) UTI (urinary tract infection): Start date: 12/08/19 Start time: 11:20 Status: Suspected Asessment and Plan: moderate amount leuk est, greater than 50 wbc, treated with ceftriaxone one dose thus far. (7) Essential hypertension: Start date: 12/08/19 Start time: 11:21 Status: Chronic Asessment and Plan: Nephrotoxic medication held in setting of ЕКАТЕРИНА, given lopressor PO with IV prn HTN (8) Hypokalemia: Start date: 12/08/19 Start time: 11:22 Status: Resolved Asessment and Plan: resolved. (9) Hematuria: Start date: 12/08/19 Start time: 11: Status: Acute Asessment and Plan: Large amount ally blood in catheter. Urology aware (10) Back pain: Start date: 12/08/19 Start time: 11:23 Status: Resolved Asessment and Plan: Resolved Above case discussed with Dr. Villalta who is in agreement. 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 He states the back pain has actually been going on, off and on, longer than that, but in the last 3 days it has gotten worse. The back pain is in the lower back, on both sides. He has tried taking tylenol and oxycodone for it, but with insufficient relief. His last BM was two days ago. His workup revealed ЕКАТЕРИНА with Cr of 3.92 (up from 1.92 on 11/04/2019), B hydroureteronephrosis and stercoral colitis. The patient was also found to have a UTI and was started on ceftriaxone. He specifically denies urinary symptoms. His imaging was reviewed by [facility] urology: it was felt that the patient's obstruction causing the hydroureteronephrosis was at the level of prostate. He was recommended to be initiated on IVF and to have a quinn catheter placed. He was admitted to /s for further management. On review of labs this am, patient had no improvement in creatinine. He did have bowel medication leading to diarrhea. He has little UOP and ally red blood. VSS. [facility] was contacted regarding patient status they agree he needs to have bilateral nephrostomy tubes with urology service. For this reason he is being discharged from [facility] and admitted to [facility] for further management care of Dr. Sherman. At this time he has no pain. He denies SOB, N/V/D. Home Meds and New Rx's Prescriptions: Continued oxycodone 5 mg capsule 5 - 10 mg PO QHS MDD 10 mg PRN (Reason: pain) Qty: 10 RF: 0 diltiazem HCl 240 MG capsule,ext.rel 24h degradable 240 mg PO QAM RF: 0 lisinopril [Zestril] 30 MG tablet 30 mg PO DAILY RF: 0 hydrochlorothiazide 25 MG tablet 25 mg PO DAILY RF: 0 famotidine 20 MG tablet 20 mg PO PRN PRNRF: 0 oxybutynin chloride 5 mg tablet 5 mg PO TID PRN (Reason: frequent urination) Qty: 15 RF: 0 phenazopyridine [Pyridium] 200 mg tablet 200 mg PO TID PRN (Reason: burning) Qty: 12 RF: 0 Discharge Instructions Additional Instructions: Transfer to [facility] Activity:: Activity as Tolerated Diet:: Other Discharge Orders Discharge Orders: Discharge Order (Routine); Ordered 12/08/19 Ordered By: Cielo Gonzalez DS: Summary Status at Discharge Functional status at discharge: independent ambulation Overall status at discharge: patient is back to baseline Mental Status: mental status grossly normal Speech and Movement: speech and movement normal Mood: congruent mood Affect: normal affect Exam Narrative Exam Narrative: General: Very pleasant middle-aged male, laying comfortably in bed, conversant Neurological: A&OX3, no focal deficits Psychiatric: Appropriate speech pattern/content Skin: Visible skin intact HEENT: Atraumatic, normocephalic, EOMI, MMM, clear oropharynx, no submandibular or cervical lymphadenopathy, no goiter or JVD Cardiovascular: RRR, no m/r/g Lungs: CTAB Gastrointestinal: soft, nontender, nondistended, + BS Genitourinary: Has a quinn - leiva red urine, clearing up in the tubing Extremities: no e/c/c BLE's, 2+ pedal pulses B Psych Mental Status: mental status grossly normal Speech and Movement: speech and movement normal Mood: congruent mood Affect: normal affect DS: Data Vitals/I&O Vitals and I&O: Vital Signs Temperature 36.9 C 12/08/19 07:50 Temperature Source Tympanic 12/08/19 07:50 Pulse 78 12/08/19 07:50 Pulse Rhythm Regular 12/08/19 08:16 Respiratory Rate 19 12/08/19 07:50 Respiratory Effort Non-Labored 12/08/19 08:16 Respiratory Depth Normal 12/08/19 08:16 Respiratory Pattern Normal 12/08/19 08:16 Blood Pressure 153/91 H 12/08/19 07:50 Pulse Oximetry 99 12/08/19 07:50 Oxygen Delivery Method Room Air 12/08/19 07:50 Oxygen Flow Rate 0 12/08/19 07:50 Pain Level 0 12/08/19 07:50 Intake & Output 12/07/19 12/07/19 12/08/19 11:59 23:59 11:59 Intake Total 550 / 550 1930 / 1930 Output Total 400 / 400 1150 / 1150 Balance 150 / 150 780 / 780 Weight 84.2 kg 88.2 kg Intake: IV 550 / 550 1450 / 1450 Oral 480 / 480 Output: Urine 400 / 400 1150 / 1150 Other: Urine Color Yellow Dark Red Urine Appearance Hematuria Hematuria Comment RN Gabi notified Stool Size Moderate Small Stool Characteristics Formed Liquid Brown Data Completed and Pending Completed studies during hospitalization [Text1]: EXAM: CT ABDOMEN PELVIS WO CLINICAL HISTORY: constipation, stercoral colitis, assess for SBO. TECHNIQUE: Imaging Protocol: Axial computed tomography images with coronal and sagittal reformatted images were created and reviewed. COMPARISON: CT ABD PELVIS WITH CONTRAST from 03/22/[address] CHEST/ABD/PEL W from 07/28/2019 FINDINGS: ABDOMEN: Lung Bases: Small hiatal hernia with reflux of contrast into the distal esophagus. Liver: Normal density. The hypodense lesion seen in the caudal aspect of the right lobe of the liver is stable compared to the prior examination. This appears to represent a cyst. Gallbladder and biliary tract: No radiodense calculus or biliary ductal dilation. Pancreas: Normal density, no abnormal calcifications or inflammatory process. Spleen: Normal. Kidneys: Normal size, contour and axis.No nephrolithiasis. Since the most recent examination there is developed bilateral hydroureteronephrosis. The dilatation extends all the way to the urinary bladder. This may be secondary to obstruction from the patient's known bladder cancer. No masses seen. Adrenal glands: No mass is seen. Lymph nodes: Since the prior examination, there has developed extensive mesenteric retroperitoneal and inguinal adenopathy. This likely is metastatic related to the patient's known bladder carcinoma. Abdominal Aorta: Abdominal portion non-dilated. Atherosclerosis. PELVIS: Bladder:Bladder wall thickening particularly at the base. This likely reflects the patient's known bladder carcinoma. Calcifications are seen within the urinary bladder. Bowel: No obstruction or bowel wall thickening. No evidence of appendicitis. There is stool seen throughout the colon consistent with constipation. The rectal vault is distended with thickening of the rectal wall suggesting stercoral colitis. Peritoneal cavity: There may be a loculated fluid collection in the pelvis adjacent to the right ureter. Reproductive organs: Enlarged prostate gland. Bones: Degenerative changes seen in the visualized thoracic and lumbar spine. Soft Tissues: Umbilical hernia containing fat. IMPRESSION: 1. Urinary bladder wall thickening with associated calcifications delete consistent with patient's history of bladder carcinoma. 2. Extensive abdominal pelvic adenopathy consistent with metastatic disease. 3. Bilateral hydroureteronephrosis distant with obstruction most likely due to the patient's bladder carcinoma. 4. Findings suggestive of stercoral colitis. FINDINGS: Mediastinal space: Hiatal hernia with reflux of contrast into the distal esophagus. Liver: Subcentimeter hypodensity inferior right hepatic lobe series 2, image 33 incompletely evaluated on this CT. Gallbladder and bile ducts: Normal. No calcified stones. No ductal dilation. Pancreas: Normal. No ductal dilation. Spleen: Normal. No splenomegaly. Adrenals: Normal. No mass. Kidneys and ureters: Bilateral hydroureteronephrosis. Infiltration of the perirenal fat. Markedly dilated ureters with periureteral stranding into the pelvis. Stomach and bowel: Constipation. Contrast within the distal esophagus, stomach, small bowel, cecum and a portion of the right colon. Constipation. Distended rectal vault with thickening of the rectal wall. Normal caliber small bowel. No evidence for bowel obstruction. Appendix: No evidence of appendicitis. Intraperitoneal space: Perirectal and katharine-sigmoidal lymphadenopathy. Katharine rectal and presacral fat infiltration. Stranding of the intrapelvic fat with possible small loculated fluid collections. Retroperitoneal space: Bilateral periureteral fat infiltration extending to involve the retroperitoneum. Vasculature: Atherosclerotic disease. Lymph nodes: Retroperitoneal lymph nodes. Inguinal adenopathy. Mesenteric adenopathy with large lymph nodes of concern for metastatic disease. Enlarged inguinal lymph nodes. Enlarged retroperitoneal lymph nodes. Bladder: Abnormal thickened bladder wall with posterior calcifications. Reproductive: Enlarged prostate. Bones/joints: Degenerative changes of the thoracic and lumbar spine. Multilevel degenerative changes of the thoracic and lumbar spine. Old right posterior rib fractures. Soft tissues: Fat distension of the inguinal canals. Umbilical hernia with omental fat. IMPRESSION: 1. Abnormal bladder wall thickening with associated calcifications consistent with patient's history of bladder carcinoma. Stranding and peripelvic fat infiltration with loculated free fluid and adenopathy consistent with metastatic disease. 2. Bilateral hydroureteronephrosis with perirenal and periureteral fat infiltration consistent with chronic obstruction. Obstruction consistent with bladder carcinoma. 3. Extensive retroperitoneal adenopathy, mesenteric adenopathy, inguinal adenopathy, pelvic sidewall adenopathy, perirectal adenopathy, and katharine-sigmoidal adenopathy. The findings are of concern for metastatic disease from known bladder carcinoma. 4. Distended stool-filled rectum with rectal wall thickening and perirectal and presacral fat infiltration of concern for stercoral colitis. 5. Multiple additional findings as discussed above. Labs on day of discharge: Labs from last 24 hours 12/08/19 12/08/19 12/08/19 11:02 06:15 06:15 WBC 7.06 RBC 3.53 L Hgb 9.9 L Hct 30.8 L MCV 87.3 MCH 28.0 MCHC 32.1 RDW 13.2 Plt Count 288 MPV 8.6 Immature Gran % 0.3 Neutrophils % 76.1 Lymphocytes % 12.7 Monocytes % 8.4 Eosinophils % 2.4 Basophils % 0.1 Nucleated RBC % 0 Absolute Neutrophils 5.37 Absolute Lymphocytes 0.90 L Absolute Monocytes 0.59 Absolute Eosinophils 0.17 Absolute Basophils 0.01 PT Pending INR Pending Sodium 140 Potassium 4.3 D Chloride 106 Carbon Dioxide 24.0 Anion Gap 10.0 BUN 45 H Creatinine 3.80 H* Estimated GFR/1.73 m2 16.02 Glucose 122 H Calcium 8.6 Magnesium 1.6 L Total Bilirubin 0.3 Conjugated Bilirubin 0.07 AST 36 ALT 19 Alkaline Phosphatase 64 Creatine Kinase Total Protein 6.2 L Albumin 3.0 L Lipase Urine Color Urine Clarity Urine pH Ur Specific [place] Urine Protein Urine Ketones Urine Blood Urine Nitrite Urine Bilirubin Urine Urobilinogen Ur Leukocyte Esterase Urine RBC Urine WBC Ur Epithelial Cells Urine Crystals Urine Bacteria Urine Casts Urine Mucus Ur Culture Indicated? Urine Glucose COVID-19 PCR Nasopharyn COVID-19 PCR Ref Test Perform Site 12/07/19 12/07/19 12/07/19 18:07 15:45 15:45 WBC 8.92 RBC 4.20 L Hgb 11.7 L Hct 36.3 L MCV 86.4 MCH 27.9 MCHC 32.2 RDW 13.0 Plt Count 350 MPV 8.2 Immature Gran % 0.2 Neutrophils % 78.3 Lymphocytes % 14.3 Monocytes % 5.7 Eosinophils % 1.3 Basophils % 0.2 Nucleated RBC % 0 Absolute Neutrophils 6.97 H Absolute Lymphocytes 1.28 Absolute Monocytes 0.51 Absolute Eosinophils 0.12 Absolute Basophils 0.02 PT INR Sodium Potassium Chloride Carbon Dioxide Anion Gap BUN Creatinine Estimated GFR/1.73 m2 Glucose Calcium Magnesium Total Bilirubin Conjugated Bilirubin AST ALT Alkaline Phosphatase Creatine Kinase 111 Total Protein Albumin Lipase Urine Color Urine Clarity Urine pH Ur Specific [place] Urine Protein Urine Ketones Urine Blood Urine Nitrite Urine Bilirubin Urine Urobilinogen Ur Leukocyte Esterase Urine RBC Urine WBC Ur Epithelial Cells Urine Crystals Urine Bacteria Urine Casts Urine Mucus Ur Culture Indicated? Urine Glucose COVID-19 PCR Pending Nasopharyn COVID-19 PCR Pending Ref Test Perform Site Pending 12/07/19 12/07/19 15:45 13:15 WBC RBC Hgb Hct MCV MCH MCHC RDW Plt Count MPV Immature Gran % Neutrophils % Lymphocytes % Monocytes % Eosinophils % Basophils % Nucleated RBC % Absolute Neutrophils Absolute Lymphocytes Absolute Monocytes Absolute Eosinophils Absolute Basophils PT INR Sodium 142 Potassium 3.4 L Chloride 104 Carbon Dioxide 24.6 Anion Gap 13.4 H BUN 43 H Creatinine 3.92 H* Estimated GFR/1.73 m2 15.45 Glucose 101 Calcium 9.8 Magnesium Total Bilirubin 0.3 Conjugated Bilirubin AST 41 H ALT 22 Alkaline Phosphatase 81 Creatine Kinase Total Protein 7.8 Albumin 3.8 Lipase 105 Urine Color Yellow Urine Clarity Sl cloudy Urine pH 5.5 Ur Specific [place] 1.015 Urine Protein Trace H Urine Ketones Negative Urine Blood Moderate H Urine Nitrite Negative Urine Bilirubin Negative Urine Urobilinogen 0.2 Ur Leukocyte Esterase Moderate H Urine RBC 20-50 H Urine WBC >50 H Ur Epithelial Cells Few Urine Crystals Negative Urine Bacteria Moderate Urine Casts Negative Urine Mucus Negative Ur Culture Indicated? Yes Urine Glucose Negative COVID-19 PCR Nasopharyn COVID-19 PCR Ref Test Perform Site 12/07/19 13:15 Urine - Reflex from [facility] Urine Culture - Pending Preliminary micro results at discharge 09/20/20 13:15 Urine Culture - Pending Urine - Reflex from [facility] Medical History (Updated 12/08/19 @ 11:23 by Cielo Gonzalez NP) Anxiety CKD (chronic kidney disease), stage III Hematuria Hx of bladder cancer Hypertension Surgical History (Updated 02/03/19 @ 09:42 by Chaya Tarango) Hx of cystoscopy TURBT Family History (Updated 12/07/19 @ 21:22 by Marlen Yanez MD) Father Prostate cancer Hypertension Brother Prostate cancer Paternal Grandfather Heart disease Stroke Paternal Uncle Cancer brain tumor Paternal Grandmother Cancer ovarian cancer Social History (Updated 12/07/19 @ 20:24 by Marlen Yanez MD) Smoking/Tobacco Use Status: Former Tobacco Use Quit Date: 03/19/97 Alcohol Intake: former Drug use: Never Substance use type: does not use Do you feel safe at home: Yes Do you feel safe in your relationship?: Yes
[2019-12-08 11:21] LABS: Prothrombin Time 10.4 sec (9.3-11.0)
[2019-12-08 11:42] VITALS: BP 147/84; PULSE 89; RESP 19; TEMP 37; O2SAT 97
[2019-12-08 12:07] VITALS: PULSE 88
[2019-12-08 12:08] LABS: COVID-19 RT-PCR UVMMC Result Negative (Negative)
== END 2019-12-08 12:18 | disposition short-term general hospital (02) | DRG 694 ==
LOC: ER 18:23 → MS 19:17
PROVIDERS: Nurse Practitioner Family; Admitting Provider Internal Medicine; Emergency Provider Physician Assistant; PCP Internal Medicine; Visit Provider Internal Medicine
DX: N13.0 Hydronephrosis with ureteropelvic junction obstruction (principal); C78.6 Secondary malignant neoplasm of retroperitoneum and peritoneum; N17.9 Acute kidney failure, unspecified; N39.0 Urinary tract infection, site not specified; K59.00 Constipation, unspecified; I12.9 Hypertensive chronic kidney disease with stage 1 through stage 4 chronic kidney disease, or unspecified chronic kidney disease; M54.9 Dorsalgia, unspecified; N18.3 Chronic kidney disease, stage 3 (moderate); E87.6 Hypokalemia; C67.9 Malignant neoplasm of bladder, unspecified; K52.89 Other specified noninfective gastroenteritis and colitis; R31.9 Hematuria, unspecified; F41.9 Anxiety disorder, unspecified
CPT/HCPCS: 36415; 51702; 80048; 80053; 80076; 82550; 83690; 96361; 96365; 96372; 96375; 99223; 99239; 99285; U0003; 72131; 74176; 81003; 81015; 83735; 85025; 85610; 87086; J0696; J1644; J1885; J2060; J3475; J3490

== ENCOUNTER 2019-12-11 02:48 | Inpatient (IN) | payer BC, SELFPAY ==
[2019-12-11] VITALS (30 sets, daily range): BP systolic 105–156; BP diastolic 65–111; PULSE 79–113; RESP 14–20; TEMP 36.5–38; O2SAT 93–100
--- NOTE | 2019-12-11 03:04 | W.ED.GENAD ---
Discharge Plan Disposition Patient Disposition: [facility] INPATIENT Condition: Fair Discharge Details Clinical Impression: Gross hematuria, Acute urinary retention Primary Care Provider: Chucky Cruz ED Provider: Jonathan Parekh [place] Meds and New Rx's Prescriptions: No Action oxycodone 5 mg capsule 5 - 10 mg PO QHS MDD 10 mg PRN (Reason: pain) Qty: 10 RF: 0 diltiazem HCl 240 MG capsule,ext.rel 24h degradable 240 mg PO QAM RF: 0 lisinopril [Zestril] 30 MG tablet 30 mg PO DAILY RF: 0 hydrochlorothiazide 25 MG tablet 25 mg PO DAILY RF: 0 famotidine 20 MG tablet 20 mg PO PRN PRNRF: 0 oxybutynin chloride 5 mg tablet 5 mg PO TID PRN (Reason: frequent urination) Qty: 15 RF: 0 phenazopyridine [Pyridium] 200 mg tablet 200 mg PO TID PRN (Reason: burning) Qty: 12 RF: 0 Medical Decision Making I reviewed the patient's notes both from here as well as from [facility]. Currently his issue is likely clot in the urethra causing him discomfort and inability to urinate. Will place three-way and attempt to clear out clot from his bladder. Will place IV and give him fluids as well as check a hemoglobin and creatinine. Would like to be able to discharge with out Chahal catheter in place if possible. Three-way Chahal placed by nursing without much difficulty. However, nursing unable to flush or extract. I went in and began hand irrigation as well as Chahal manipulation. Ultimately obtained a large amount of clots. Would be able to flush and then have to extract more clot. Patient much more comfortable. However, could not continuously flush without clots and discomfort. After 30 to 45 minutes of this, I asked for a hematuria catheter to be brought to the ED. Three-way Chahal was removed. 22 [place] hematuria catheter placed by me without difficulty. Further hand irrigation with minimal clots. CBI hooked up with good flow. Patient's hemoglobin is 7.6. When he left [facility] it was 8.2. Creatinine 2.3. Potassium normal. IV fluids are continuing. Because of the amount of manipulation and instrumentation a gram of ceftriaxone was given. Case discussed with hospitalist for observation admission and continued irrigation. Would recheck hemoglobin and creatinine later this afternoon. If CBI irrigant remains clear and labs stable he could potentially go home this afternoon. Medical Records Medical records reviewed: Yes I reviewed the patient's medical records. Lab Data Lab results reviewed: Yes I reviewed the patient's lab results. HPI General Mode of arrival: ambulatory. Date/Time Provider Initiated Documentation: 12/11/19 02:53. Limitations to Documentation: no limitations. Information obtained by: patient, RN notes reviewed and old records reviewed. HPI Narrative: Patient presents to ED with inability to urinate associated with penile pain and bladder spasm. Patient has bilateral nephrostomy tubes in. He had been admitted here a few days ago with acute on chronic kidney failure related to bilateral hydronephrosis. A Chahal was placed here which was apparently traumatic. He received IV fluids overnight but continued to have elevated creatinine. He was accepted by urology at [facility] the following day. Subsequently underwent bilateral nephrostomy tube placement. He reports that he has been able to urinate since then. He has been passing clots and very little urine which is to be expected given the bilateral nephrostomy tubes. He came home from [facility] in the afternoon. He has not been able to urinate since waking up early this morning. He denies fever. He denies abdominal pain, vomiting. Has mild back pain which is essentially unchanged. He did take oxycodone before coming in. Related Data Home Medications Medication Instructions Recorded Confirmed diltiazem HCl 240 mg PO QAM 12/02/16 12/11/19 hydrochlorothiazide 25 mg PO DAILY 12/02/16 12/11/19 lisinopril [Zestril] 30 mg PO DAILY 12/02/16 12/11/19 famotidine 20 mg PO PRN PRN 10/23/17 12/11/19 oxybutynin chloride 5 mg PO TID PRN #15 tab 02/03/19 12/11/19 phenazopyridine [Pyridium] 200 mg PO TID PRN #12 tab 02/03/19 12/11/19 oxycodone 5 mg capsule 5 - 10 mg PO QHS PRN #10 cap MDD 12/02/19 12/11/19 10 mg Previous Rx's Medication Instructions Recorded oxybutynin chloride 5 mg PO TID PRN #15 tab 02/03/19 phenazopyridine [Pyridium] 200 mg PO TID PRN #12 tab 02/03/19 oxycodone 5 mg capsule 5 - 10 mg PO QHS PRN #10 cap MDD 12/02/19 10 mg Allergies Allergy/AdvReac Type Severity Reaction Status Date / Time No Known Allergies Allergy Unverified 12/11/19 03:42 General Stated Complaint: Urinary HUSSEIN: 3 Review of Systems Narrative: As documented in HPI otherwise negative as below. Const: no fever, chills, weakness Resp: no cough, SOB, pleuritic pain CV: no CP, diaphoresis, edema, syncope GI: no abdominal pain, nausea, vomiting, diarrhea Neuro: no headache, numbness, focal weakness, confusion PFSH Medical History Anxiety CKD (chronic kidney disease), stage III Hematuria Hx of bladder cancer Hypertension Surgical History Hx of cystoscopy Nephrostomy status Bilateral TURBT Family History Father Prostate cancer Hypertension Brother Prostate cancer Paternal Grandfather Heart disease Stroke Paternal Uncle Cancer brain tumor Paternal Grandmother Cancer ovarian cancer Social History Smoking/Tobacco Use Status: Former Tobacco Use Quit Date: 03/19/97 Alcohol Intake: former Drug use: Never Substance use type: does not use Do you feel safe at home: Yes Do you feel safe in your relationship?: Yes Exam Narrative Exam Narrative: Vitals: Afebrile. Elevated blood pressure and heart rate likely related to discomfort. Normal room air pulse ox. Const: WDWN elderly male in NAD. HEENT: NC/AT. Normal facial exam. Eyes: Normal conjunctiva and sclera. Neck: Supple. Trachea midline. Lungs: Normal respiratory effort. Cor: Good radial pulses. GI: Soft. NT/ND. No guarding or rebound. Back: Bilateral nephrostomy tubes in place and working Neuro: A+O x 3. Normal speech, mentation, gait. Cranial nerves II - XII grossly intact. No gross motor or sensory deficit. Ext: No C/C/E. Course Vital Signs Vital signs: Vital Signs Temperature 97.7 F 12/11/19 02:52 Pulse 98 H 12/11/19 02:52 Respiratory Rate 20 12/11/19 02:52 Blood Pressure 156/90 H 12/11/19 02:52 Pulse Oximetry 99 12/11/19 02:52 Temperature 97.7 F 12/11/19 02:52 Temperature Source Tympanic 12/11/19 02:52 Pulse 98 H 12/11/19 02:52 Respiratory Rate 20 12/11/19 02:52 Respiratory Effort 12/11/19 02:57 Blood Pressure 156/90 H 12/11/19 02:52 Pulse Oximetry 99 12/11/19 02:52 Oxygen Delivery Method Room Air 12/11/19 02:52 Oxygen Flow Rate 0 12/11/19 02:52 Pain Level 12/11/19 02:57
[2019-12-11 03:24] LABS: HGB 7.6 g/dL (13.5-17.5)
[2019-12-11 03:33] LABS: Anion Gap 14.7 mmol/L (3-11); BUN 22 mg/dL (7-18); CO2 22.3 mmol/L (21.0-32.0); CREATININE 2.31 mg/dL (0.70-1.30); Chloride 95 mmol/L (98-107); Estimated GFR 28.45 (mL/min/1.73m2); Glucose 109 mg/dL (74-106); Potassium 3.6 mmol/L (3.5-5.1); Sodium 132 mmol/L (136-145)
[2019-12-11] MEDS: Lidocaine 2% Jelly 11 ML SYR UR (03:41)
[2019-12-11] MEDS: Lactated Ringers 1,000 ML 1000 ML IV (03:41)
[2019-12-11] MEDS: cefTRIAXone 1 GM/50 ML BAG IVPB (05:07)
--- NOTE | 2019-12-11 05:17 | W.PM.HP.N ---
Date of service: 12/11/19 Time of Service: 05:17 Assessment and Plan Assessment and plan (1) Hematuria: Status: Acute Assessment and plan: Hematuria. Unclear if underlying lesion is bladder, prostate or both, in any case precipitated by recent instrumentation. Seems to be clearing at present, will continue CBI and confer with Urology regarding next steps. Note that it remains unclear what the initial obstructive lesion was last week and patient will need cysto at some point. Will also monitor Hct and BP in light of substantial bleed. Will provisionally keep NPO pending input. History of Present Illness History of Present Illness Chief Complaint: abd pain Narrative: 64 male with h/o metastatic bladder CA. Here 12/07/19 with obstructive uropathy and subsequent traumatic hematuria. Transferred [facility] [place], s/p bilateral nephrostomy tubes. 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 In ER Chahal placed found to have massive hematuria. Chahal clotted off. so-called hematuria catheter placed. Has since been having CBI with gradual clearing of output. Pain has entirely resolved since clot removed. Hct down to 23 from 30 last week. Creatinine down to 2.3 from peak of 3.9 last week. BP initially 141/111, currently 137/80. Has received MS 8 mg divided doses, and 1 gr Rocephin Admitted for further management. Review of Systems All systems reviewed & are unremarkable except as noted in HPI and below PFSH Medical History Anxiety CKD (chronic kidney disease), stage III Hematuria Hx of bladder cancer Hypertension Surgical History Hx of cystoscopy Nephrostomy status Bilateral TURBT Family History Father Prostate cancer Hypertension Brother Prostate cancer Paternal Grandfather Heart disease Stroke Paternal Uncle Cancer brain tumor Paternal Grandmother Cancer ovarian cancer Social History Smoking/Tobacco Use Status: Former Tobacco Use Quit Date: 03/19/97 Alcohol Intake: former Drug use: Never Substance use type: does not use Do you feel safe at home: Yes Do you feel safe in your relationship?: Yes Meds Home Medications and Allergies Home Medications Medication Instructions Recorded Confirmed Type diltiazem HCl 240 mg PO QAM 12/02/16 12/11/19 History hydrochlorothiazide 25 mg PO DAILY 12/02/16 12/11/19 History lisinopril [Zestril] 30 mg PO DAILY 12/02/16 12/11/19 History famotidine 20 mg PO PRN PRN 10/23/17 12/11/19 History oxybutynin chloride 5 mg PO TID PRN #15 tab 02/03/19 12/11/19 Rx phenazopyridine [Pyridium] 200 mg PO TID PRN #12 tab 02/03/19 12/11/19 Rx oxycodone 5 mg capsule 5 - 10 mg PO QHS PRN #10 cap MDD 12/02/19 12/11/19 Rx 10 mg Allergies Allergy/AdvReac Type Severity Reaction Status Date / Time No Known Allergies Allergy Unverified 12/11/19 03:42 Exam Narrative Exam Narrative: 137/80. 99, 36.5, 20, 98% RA. HEENT atraumatic, neck supple; lungs clear; heart RRR; abdomen soft and NT, bilateral nephrostomy tubes draining bloody urine; catheter in place draining pink irrigant, bilateral hydrocoele transilluminate; extremities w/o edema, neuro Ox3 nonfocal Results Labs Result diagrams: 12/11/19 03:18 12/11/19 03:18 Labs: Laboratory Results - last 24 hr 12/11/19 12/11/19 03:18 03:18 Hgb 7.6 L D Hct 23.0 L D Sodium 132 L Potassium 3.6 Chloride 95 L Carbon Dioxide 22.3 Anion Gap 14.7 H BUN 22 H D Creatinine 2.31 H D Estimated GFR/1.73 m2 28.45 Glucose 109 H Calcium 9.0 Last Vital Signs Temp 36.5 C 12/11/19 02:52 Pulse 92 H 12/11/19 03:00 Resp 20 12/11/19 02:52 BP 141/111 H 12/11/19 03:00 Pulse Ox 98 12/11/19 03:10 COVID-19 Screening Have you,or household,traveled outside [place] in last 14 days?: No Had IN PERSON contact w/suspected or confirmed C-19 person: No
--- NOTE | 2019-12-11 05:21 | NUR.NOTE ---
Nursing Note: 2000 ml from CBI and 2000 ml from nephrostomy tubes bilateral.
[2019-12-11] MEDS: Lactated Ringers 1,000 ML 125 ML IV (05:40)
[2019-12-11 07:02] LABS: HCT 21.7 % (40.0-50.0); HGB 7.1 g/dL (13.5-17.5)
[2019-12-11] MEDS: Acetaminophen 325 MG TAB 650 MG PO ×3 (07:03→23:53)
[2019-12-11 11:04] LABS: COVID-19 RT-PCR UVMMC Result Negative (Negative)
[2019-12-11 11:47] LABS: HCT 21.2 % (40.0-50.0)
[2019-12-11 11:50] LABS: HGB 6.9 g/dL (13.5-17.5)
[2019-12-11 12:02] LABS: Procalcitonin 0.4 ng/mL
[2019-12-11] MEDS: Phenazopyridine 200 MG TAB PO (12:57)
[2019-12-11 13:15] LABS: Bilirubin Negative (Negative); Blood Large (Negative); Clarity Sl Cloudy (Clear); Glucose Negative (Negative); Ketones Negative (Negative); Leukocyte Esterase Small (Negative); Nitrite Negative (Negative); Urobilinogen 0.2 EU/dL (Up TO 0.2); pH 6.5 (5-8)
[2019-12-11] MEDS: diphenhydrAMINE 25 MG CAP PO (13:24)
[2019-12-11 13:25] LABS: Bacteria Moderate HPF (Negative); C & S Indicated? Yes; Crystals Negative HPF (Negative); Epithelial Cells Rare HPF (Negative); Mucus Trace (Negative); RBC >50 HPF (0-2)
--- NOTE | 2019-12-11 14:18 | INITIAL_ITS ---
- If Service Date Differs Date of service: 12/11/19 Time of Service: 16:19 Care Management Initial Assess REASON FOR HOSPITALIZATION:: Hematuria PAST MEDICAL HISTORY/PAST SURGICAL HISTORY:: Medical History (Updated 12/07/19 @ 21:26 by Marlen Yanez MD). Anxiety. CKD (chronic kidney disease), stage III. Hematuria. Hx of bladder cancer. Hypertension. Surgical History (Updated 02/03/19 @ 09:42 by Chaya Tarango). Hx of cystoscopy. TURBT PREVIOUS FUNCTIONAL STATUS/SOCIAL/FAMILY SUPPORTS:: Joseph lives with his Brandi in a single family home in [place], [place] 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 Joseph has 3 children and proudly shared their career choices with CM. Joseph enjoys hunting and fishing and describes himself as being very active. ADVANCE DIRECTIVES:: None on file Has patient been provided with info about the portal/API?: No Did the patient sign up for the portal?: No CODE STATUS:: Full Code INSURANCE COVERAGE / FINANCIAL ISSUES:: BS CURRENT HOME/COMMUNITY SERVICES/EQUIPMENT:: No current services at this time. PRIMARY CARE PHYSICIAN:: Chucky Cruz POTENTIAL DISCHARGE NEEDS:: Follow up with PCP and discharge plan of care established at [facility] [place]. PATIENT/FAMILY EDUCATION NEEDS:: Discharge plan, limitations, follow up plan, Ask Me Three. ANTICIPATED BARRIERS TO DISCHARGE:: None identified at this time. TRANSPORTATION:: TBD by disposition. PLAN:: Jonathan remains NPO at this time, awaiting urology consult. CM continues to follow. Readmission - Within the Past 30 Days Yes or No: Y - Date of First Admission Date of 1st Admission: 12/07/19 - Date of this Admission Date of Admission: 12/11/19 This admission was: Through ED - Assessment for Readmission Summary of readmission circumstances, based upon interviews: 64 male with h/o metastatic bladder CA. Here 12/07/19 with obstructive uropathy and subsequent traumatic hematuria. Transferred [facility] [place], s/p bilateral nephrostomy tubes. D/C'ed one day ENTRY REP, returns with increasing suprapubic pain. In ER Chahal placed found to have massive hematuria. Chahal clotted off. so-called hematuria catheter placed. Has since been having CBI with gradual clearing of output.
[2019-12-11] MEDS: Docusate Sodium 100 MG CAP PO ×2 (14:38→20:05)
--- NOTE | 2019-12-11 14:41 | PHA.REVIEW ---
Pharmacy Admission Review - Admission Clinical Review (Last Reviewed 12/11/19 @ 05:28 by Rex Alves MD) Acute urinary retention (Acute) Hematuria (Acute) Gross hematuria (Acute 10/25/17) No Known Allergies Allergy (Unverified 12/11/19 03:42) Height 5 ft 10 in Weight 88.4 kg Hematuria - Comments Comments/Follow Ups: Follow H/H, afternoon draw after one unit of blood transfused. Urine culture pending, BP's soft today-watch for restart of home BP meds - Renal Dosing Renal Dosing: BUN 22 mg/dL (7-18) H D 12/11/19 03:18 Creatinine 2.31 mg/dL (0.70-1.30) H D 12/11/19 03:18 CrCl~32ml/min Medications needing adjustments: N/A (no med adjustments needed) - Anticoagulation Anticoagulation: Hgb 6.9 g/dL (13.5-17.5) L* 12/11/19 11:23 Hct 21.2 % (40.0-50.0) L 12/11/19 11:23 Creatinine 2.31 mg/dL (0.70-1.30) H D 12/11/19 03:18 DVT Prohphylaxis: N/A (bleeding) - Opiate Usage Evaluate Pain Scale/Pains Meds: N/A - Relevant Labs Sodium 132 mmol/L (136-145) L 12/11/19 03:18 Potassium 3.6 mmol/L (3.5-5.1) 12/11/19 03:18 Chloride 95 mmol/L (98-107) L 12/11/19 03:18 Electrolytes, C-Reactive P, ESR: Reviewed (Procalcitonin 0.4) - DM Control DM Control: Glucose 109 mg/dL (74-106) H 12/11/19 03:18 Insulin Dosing: N/A - Heart Failure/[place] EF%, ASIF's, B-Blockers, Diuretics: N/A - BP Control BP Control: Blood Pressure 108/73 Blood Pressure 105/65 Blood Pressure 136/78 Blood Pressure 135/83 Blood Pressure 135/83 Blood Pressure 133/77 Blood Pressure 131/71 Blood Pressure 143/80 Blood Pressure 137/80 Blood Pressure 123/77 Blood Pressure 141/111 Blood Pressure 156/90 Blood Pressure 156/90 If elevated: N/A - Home Meds Relevent Home Meds Not ordered & why?: Diltiazem, Famotidine, HCTZ, Lisinopril - Comments Comments/Follow Ups: Has continuous bladder irrigation, diet NPO, Urology consult. Hx Metastatic bladder cancer, went to [facility] for bilateral nephrostomy tubes and quinn found to have a large clot. Rec'd 1x Ceftriaxone in ED
[2019-12-11 19:29] LABS: HCT 25.3 % (40.0-50.0); HGB 8.2 g/dL (13.5-17.5)
[2019-12-12] MEDS: Lactated Ringers 1,000 ML 125 ML IV ×3 (02:06→18:08)
[2019-12-12] MEDS: Normal Saline Flush 10 ML SYR IVP (02:06)
[2019-12-12 06:51] LABS: Abs Immature Grans 0.06 10^3/uL (0.0-0.06); Absolute Basophil Count 0.03 10^3/uL (0.0-0.2); Absolute Eosinophil Count 0.19 10^3/uL (0.0-0.7); Absolute Lymphocyte Count 1.19 10^3/uL (1.2-3.4); Absolute Monocyte Count 0.68 10^3/uL (0.1-0.8); Absolute Neutrophil Count 4.93 10^3/uL (1.2-6.7); Basophils % 0.4; Eosinophils % 2.7; HCT 23.6 % (40.0-50.0); HGB 7.9 g/dL (13.5-17.5); Immature Grans % 0.8; Lymphocytes % 16.8; MCH 28.8 pg (27.0-33.0); MCHC 33.5 % (32.0-36.0); MCV 86.1 fL (80-95); MPV 8.9 fL (8.0-11.0); Monocytes % 9.6; Neutrophils % 69.7; Nucleated RBC 0 %; Platelet Count 343 10^3/uL (130-400); RBC 2.74 10^6/uL (4.36-5.78); RDW 13.7 % (11.8-14.1); RDW-SD 43.3 fL; WBC 7.08 10^3/uL (4.4-10.8)
[2019-12-12 07:11] LABS: Anion Gap 8.9 mmol/L (3-11); BUN 19 mg/dL (7-18); CO2 27.1 mmol/L (21.0-32.0); CREATININE 2.26 mg/dL (0.70-1.30); Calcium 9.3 mg/dL (8.5-10.1); Chloride 101 mmol/L (98-107); Estimated GFR 29.18 (mL/min/1.73m2); Glucose 113 mg/dL (74-106); Potassium 3.8 mmol/L (3.5-5.1); Sodium 137 mmol/L (136-145)
[2019-12-12] MEDS: Tamsulosin 0.4 MG CAPCR 0.8 MG PO (08:25)
[2019-12-12] MEDS: Polyethylene Glycol 3350 17 GM PACKET PO (08:26)
[2019-12-12] MEDS: Docusate Sodium 100 MG CAP PO ×3 (08:26→19:49)
[2019-12-12 08:42] VITALS: BP 165/92; PULSE 104; RESP 17; TEMP 36.6; O2SAT 97
--- NOTE | 2019-12-12 08:49 | DI.US_ITS ---
EXAM: US PELVIS LIMITED CLINICAL HISTORY: hematuria. TECHNIQUE: Ultrasound renal, pelvic, both abdmonal and tranvaginal was performed using standard prot ocol. COMPARISON: CT CT ABDOMEN PELVIS WO from 12/07/2019 FINDINGS: Bladder:There is a Chahal catheter visible within the bladder. The bladder was inadequately distended for this examination. There is diffuse bladder wall thickening up to 3 cm. The Chahal catheter tip appears to be in contact/embedded into the urinary bladder wall. IMPRESSION: 1. Examination limited to inadequate filling of the urinary bladder. 2. Diffuse bladder wall thickening. The bladder mass or infectious/inflammatory process should be co nsidered. 3. There is a Chahal catheter within the urinary bladder. The catheter tip appears to be in contact w ith/embedded into the urinary bladder wall. DATA REPOSITORY:
[2019-12-12] MEDS: Acetaminophen 325 MG TAB 650 MG PO (09:13)
--- NOTE | 2019-12-12 09:27 | NUR.NOTE ---
Nursing Note: 0730: this RN enters room to assist the CBI. pt noted to be very uncomfortable while sitting at the bedside edge. pt encouraged to lay back in bed so RN x 2 could assess CBI tubing and drainage. pt noted to be having spasms as indicated by presentation and bloody drainage that had increased in tubing. fluid begins to drain around the penis which is red in color. CBI did not appear to be instilling as the fluid from the bladder appeared to be back flowing in to the insertion tubing. quinn drainage bag disconnected to allow for hand irrigation of the tubing. DOMINIQUE Butcher gently hand irrigates quinn x 6 with small amounts of NS with positive return of fluid and a small amount of clots. this process would relieve the pressure that the pt felt for a very brief time and then another round of spasms would occur. communication to see if urology was in the building was not successful, Dr. Villalta was requested to come to room. an order for a B&O suppository was obtained and suppository was given to the pt. this RN hand irrigates pt and has positive return of a large amount of clots x 6, fluid continues to drain around quinn site. radiology in room to do US; pt is not able to tolerate the attempt to have a full bladder and begins to spasm again. NS continues to flow into CBI with good return to quinn bag. after approximately 90 minutes, tubing is revealing clear fluid with a very minimal amount of intermittent pink color noted in the tubing. good flow into the bladder from the CBI with good return from quinn. pt is comfortable at this time (0930) continue to monitor.
--- NOTE | 2019-12-12 10:07 | CMPROGNOTE_ITS ---
Care Management Progress Note S/O: Per provider, Jonathan will remain at [facility] or transfer to tertiary. [facility] closed to admissions at this time, anticipate MD contact with [facility]. Jonathan will transition to full admission today. He remains pleasant in interaction and verbalizes understanding of his treatment plan. CM continues to follow. A: 64 year old male admitted to [facility] 12/11/19 for Hematuria P: Per provider, Jonathan will remain at [facility] for Urology consult or transfer to tertiary. [facility] closed to admissions at this time, anticipate MD contact with [facility]. With transfer, Jonathan will transport via EMS. CM continues to follow.
--- NOTE | 2019-12-12 10:07 | PDOC.CMPRO ---
Care Management Progress Note S/O: Per provider, Jonathan will remain at [facility] or transfer to tertiary. [facility] [place] to admissions at this time, anticipate MD contact with [facility]. Jonathan will transition to full admission today. He remains pleasant in interaction and verbalizes understanding of his treatment plan. CM continues to follow. A: 64 year old male admitted to [facility] 12/11/19 for Hematuria P: Per provider, Jonathan will remain at [facility] for Urology consult or transfer to tertiary. [facility] closed to admissions at this time, anticipate MD contact with [facility]. With transfer, Jonathan will transport via EMS. CM continues to follow.
[2019-12-12] MEDS: Phenazopyridine 200 MG TAB PO ×2 (10:38→22:52)
[2019-12-12] MEDS: Normal Saline 50 ML 200 ML (10:40)
[2019-12-12] MEDS: dilTIAZem CD 120 MG CAPCR 240 MG PO (11:00)
--- NOTE | 2019-12-12 11:36 | W.NUTRFU ---
Date of service: 12/12/19 Time of Service: 11:36 Nutritional Follow up NOTE: 64 year old male admitted with urinary retention, with h/o metastatic bladder CA. Following regular diet with adequate intake to meet nutrient and fluid needs. BMI wnl for age and stable> 1 year. Not at risk for nutritional decline at this time. Will continue to monitor. Time Spent in Nutritional Counseling and Treatment: 0 time spent face to face
[2019-12-12] MEDS: Normal Saline 50 ML 200 ML IVPB (14:30)
[2019-12-12 15:30] VITALS: BP 144/82; PULSE 96; RESP 18; TEMP 36.2; O2SAT 97
--- NOTE | 2019-12-12 15:53 | PGE_ITS ---
Date of Service Date of service: 12/12/19 Time of Service: 07:54 Assessment and Plan Assessment and plan (1) Nephrostomy status: Status: Acute Assessment and plan: Bilateral nephrost[place] tubes [place] [facility] Obstructive uropathy likely d/t metastatic bladder cancer. (2) CKD (chronic kidney disease), stage III: Status: Acute Assessment and plan: Creatinine 2.31 on admission; now 2.26. Creatinine at last admission on 12/07/2019: 3.92 and 3.[address] Now on CBI because of clots. US of bladder showed tip of bladder against wall. Did not pull the catheter back d/t concerns this might cause more bleeding. Catheter is irrigating well currently. (3) Discharge planning issues: Status: Acute Assessment and plan: Could likely d/c on 12/[address] and f/u with urology next week. (4) Obstructive uropathy: Status: Acute Assessment and plan: Likely d/t metastatic bladder cancer Followed by urology Chahal in place. On tamsulosin. (5) History of bladder cancer: Status: Acute Assessment and plan: Metastatic. (6) Essential hypertension: Status: Chronic Assessment and plan: Intermittent elevations but generally controlled. Cont Diltiazem CD 240mg daily. Monitor Subjective Subjective Interval history since last seen: Pt re-developed suprapubic, low back pain this am after being comfortable overnight Bladder irrigation checked and there was resistance to flushing. Hand irrigated for a period of time and flow improved. Temperature elevation of 38 at 17:06 yesterday after transfusion of RBCs. No recurrence. Has felt, otherwise, OK. Exam Const General: cooperative and no acute distress Nutritional Appearance: overweight Orientation: alert and oriented x3 Resp Effort & Inspection: normal respiratory effort Auscultation: clear to auscultation bilaterally Cardio Rate: regular rate Rhythm: regular rhythm Heart Sounds: S1 normal and S2 normal GI Inspection: other (Bilateral nephrostomy tubes in place with bloody drainage.) Palpation: soft and nontender General: other (Urinary catheter with CBI; pink fluid in collection bucket.) Objective Last Vital Signs Temp 36.6 C 12/12/19 08:42 Pulse 104 H 12/12/19 08:42 Resp 17 12/12/19 08:42 BP 165/92 H 12/12/19 08:42 Pulse Ox 97 12/12/19 08:42 Laboratory Results - last 24 hr 12/11/19 12/11/19 12/12/19 11:23 19:26 06:15 WBC RBC Hgb 8.2 L Hct 25.3 L MCV MCH MCHC RDW Plt Count MPV Immature Gran % Neutrophils % Lymphocytes % Monocytes % Eosinophils % Basophils % Nucleated RBC % Absolute Neutrophils Absolute Lymphocytes Absolute Monocytes Absolute Eosinophils Absolute Basophils Sodium 137 Potassium 3.8 Chloride 101 Carbon Dioxide 27.1 Anion Gap 8.9 BUN 19 H Creatinine 2.26 H Estimated GFR/1.73 m2 29.18 Glucose 113 H Calcium 9.3 Crossmatch See Detail 12/12/19 06:15 WBC 7.08 RBC 2.74 L Hgb 7.9 L Hct 23.6 L MCV 86.1 MCH 28.8 MCHC 33.5 RDW 13.7 Plt Count 343 MPV 8.9 Immature Gran % 0.8 Neutrophils % 69.7 Lymphocytes % 16.8 Monocytes % 9.6 Eosinophils % 2.7 Basophils % 0.4 Nucleated RBC % 0 Absolute Neutrophils 4.93 Absolute Lymphocytes 1.19 L Absolute Monocytes 0.68 Absolute Eosinophils 0.19 Absolute Basophils 0.03 Sodium Potassium Chloride Carbon Dioxide Anion Gap BUN Creatinine Estimated GFR/1.73 m2 Glucose Calcium Crossmatch
[2019-12-12] MEDS: Famotidine 20 MG TAB PO (21:10)
[2019-12-13] VITALS (10 sets, daily range): BP systolic 124–158; BP diastolic 68–92; PULSE 64–100; RESP 14–18; TEMP 36.2–37.6; O2SAT 91–99
[2019-12-13] MEDS: Lactated Ringers 1,000 ML 125 ML IV ×3 (01:49→20:56)
[2019-12-13] MEDS: Acetaminophen 325 MG TAB 650 MG PO ×4 (03:45→20:57)
[2019-12-13 07:29] LABS: HCT 21.3 % (40.0-50.0)
[2019-12-13 07:35] LABS: HGB 6.9 g/dL (13.5-17.5)
[2019-12-13 07:42] LABS: Anion Gap 9.3 mmol/L (3-11); BUN 15 mg/dL (7-18); CO2 27.7 mmol/L (21.0-32.0); CREATININE 1.86 mg/dL (0.70-1.30); Calcium 8.9 mg/dL (8.5-10.1); Chloride 102 mmol/L (98-107); Estimated GFR 36.53 (mL/min/1.73m2); Glucose 96 mg/dL (74-106); Potassium 3.9 mmol/L (3.5-5.1); Sodium 139 mmol/L (136-145)
[2019-12-13] MEDS: Tamsulosin 0.4 MG CAPCR 0.8 MG PO (07:42)
[2019-12-13] MEDS: Famotidine 20 MG TAB PO (07:42)
[2019-12-13] MEDS: Polyethylene Glycol 3350 17 GM PACKET PO ×2 (07:43→20:57)
[2019-12-13] MEDS: Docusate Sodium 100 MG CAP PO ×3 (07:43→20:57)
[2019-12-13] MEDS: dilTIAZem CD 120 MG CAPCR 240 MG PO (09:47)
[2019-12-13] MEDS: diphenhydrAMINE 25 MG CAP PO (10:27)
[2019-12-13] MEDS: diazePAM 5 MG TAB PO ×2 (12:14→16:56)
[2019-12-13] MEDS: Normal Saline Flush 10 ML SYR IVP ×2 (17:42→22:18)
[2019-12-13 19:36] LABS: HCT 25.6 % (40.0-50.0); HGB 8.3 g/dL (13.5-17.5)
--- NOTE | 2019-12-13 20:01 | CMPROGNOTE_ITS ---
- If Service Date Differs Date of service: 12/13/19 Time of Service: 20:01 Care Management Progress Note S/O: Joseph was sitting up in bed when CM met with him. He was pleasant and engaged in conversation readily. He has a CBI running and the plan is for him to remain at [facility] and see Dr. Mcgovern on Sunday. Joseph received blood today due to a drop in hgb from hematuria. He shared that he has a tumor in his bladder which is bleeding and needs an intervention. He was disappointed, he stated, that the Urology providers at [facility] did not attend to this when he was there last week for bilateral nephrosstomy tube placements. Dr. Mcgovern will be back on Sunday and He shared that he hopes Dr. Mcgovern will address the issue surgically upon his return. A: 64 year old male admitted to [facility] 12/11/19 for Hematuria P: Jonathan will remain at [facility] for Urology consult and care. He will likely be discharged home when medically and surgically cleared and follow up with his community providers. CM will continue to support Joseph and assess for discharge needs.
[2019-12-13] MEDS: Phenazopyridine 200 MG TAB PO (20:57)
[2019-12-14] MEDS: Normal Saline Flush 10 ML SYR IVP ×3 (01:55→13:56)
[2019-12-14] MEDS: Lactated Ringers 1,000 ML 125 ML IV ×2 (05:07→13:56)
[2019-12-14] MEDS: diazePAM 5 MG TAB PO ×3 (06:11→17:13)
[2019-12-14] MEDS: Acetaminophen 325 MG TAB 650 MG PO ×4 (06:11→23:24)
[2019-12-14 07:25] VITALS: BP 153/94; PULSE 86; RESP 16; TEMP 36.7; O2SAT 98
[2019-12-14] MEDS: Polyethylene Glycol 3350 17 GM PACKET PO (07:50)
[2019-12-14] MEDS: Tamsulosin 0.4 MG CAPCR 0.8 MG PO (07:51)
[2019-12-14] MEDS: Famotidine 20 MG TAB PO (07:51)
[2019-12-14] MEDS: dilTIAZem CD 120 MG CAPCR 240 MG PO (07:51)
[2019-12-14] MEDS: Bisacodyl 10 MG SUPP PR (07:51)
[2019-12-14] MEDS: Docusate Sodium 100 MG CAP PO ×2 (07:52→13:41)
[2019-12-14 08:00] LABS: HCT 24.4 % (40.0-50.0)
[2019-12-14 08:09] LABS: Anion Gap 5.9 mmol/L (3-11); BUN 16 mg/dL (7-18); CO2 30.1 mmol/L (21.0-32.0); CREATININE 1.86 mg/dL (0.70-1.30); Calcium 9.1 mg/dL (8.5-10.1); Chloride 101 mmol/L (98-107); Estimated GFR 36.53 (mL/min/1.73m2); Glucose 111 mg/dL (74-106); Potassium 4.2 mmol/L (3.5-5.1); Sodium 137 mmol/L (136-145)
--- NOTE | 2019-12-14 11:11 | PDOC.CMPRO ---
- If Service Date Differs Date of service: 12/14/19 Time of Service: 11:11 Care Management Progress Note S/O: Joseph was sitting up in bed visiting with his . He remains cheerful and stated that he feels his urine is clearing up. It is noticeably less bloody today than yesterday. He shared that he is looking forward to seeing Dr Mcgovern tomorrow. A: 64 year old male admitted to [facility] 12/11/19 for Hematuria P: Jonathan will remain at [facility] for Urology consult and care. He will likely be discharged home when medically and surgically cleared and follow up with his community providers. CM will continue to support Joseph and assess for discharge ne
[2019-12-14 15:26] VITALS: BP 123/76; PULSE 89; RESP 20; TEMP 36.8; O2SAT 98
--- NOTE | 2019-12-14 15:41 | PGE_ITS ---
Date of Service Date of service: 12/14/19 Time of Service: 15:41 Assessment and Plan Assessment and plan (1) Hematuria: Status: Acute Assessment and plan: With clotting on presentation, resulting in urinary retention. Now on CBI, improving. Etiology: bleeding bladder tumor most likely. Continue to hold off of chemical DVT ppx. Await urology consult tomorrow. (2) Anemia due to acute blood loss: Status: Acute Assessment and plan: S/p transfusion of 2 units of pRBCs on this admission. Blood loss due to hematuria. H/H stable today. Recheck in am. (3) Nephrostomy status: Status: Chronic Assessment and plan: S/p Bilateral nephrostomy tubes for bladder outlet obstruction due to bladder tumor. Functioning well. (4) CKD (chronic kidney disease), stage III: Status: Acute Assessment and plan: Since nephrostomies were placed and urinary retention resolved, Cr is down to 1.86, stable today from yesterday. At this point, ok to d/c IVF. (5) Obstructive uropathy: Status: Acute Assessment and plan: As above - due to bladder tumor. Now with 3-way catheter in place, s/p nephrostomies B and on tamsulosin. D/c IVF. Recheck labs in am. Await urology consult. (6) History of bladder cancer: Status: Chronic Assessment and plan: Metastatic. Stage 4, s/p chemo, awaiting initiation of immunotherapy. Consult urology and palliative care. (7) Essential hypertension: Status: Chronic Assessment and plan: Mostly well controlled. Continue Diltiazem CD 240mg daily. (8) Discharge planning issues: Status: Acute Assessment and plan: Full code Continues to require hospitalization. (9) DVT prophylaxis: Status: Acute Assessment and plan: TEDs/SCDs. Hold off on chemical DVT ppx due to hematuria. Subjective Subjective Interval history since last seen: Hematuria is slowing down. Remains on CBI. Denies dizziness, chest pain, shortness of breath, nausea. Anxious to see Dr Mcgovern tomorrow. A little anxious in general. Exam Narrative Exam Narrative: General: Very pleasant middle-aged male, A&Ox3, [place] [facility], looks tired HEENT: EOMI, MMM Heart: RRR, no m/r/g Lungs: CTAB Abdomen: soft, nontender, nondistended Extremities: no e/c/c BLEs Objective Last Vital Signs Temp 36.7 C 12/14/19 07:25 Pulse 86 12/14/19 07:25 Resp 16 12/14/19 07:25 BP 153/94 H 12/14/19 07:25 Pulse Ox 98 12/14/19 07:25 Laboratory Results - last 24 hr 12/13/19 12/14/19 12/14/19 19:17 07:49 07:49 Hgb 8.3 L 8.0 L Hct 25.6 L D 24.4 L Sodium 137 Potassium 4.2 Chloride 101 Carbon Dioxide 30.1 Anion Gap 5.9 BUN 16 Creatinine 1.86 H Estimated GFR/1.73 m2 36.53 Glucose 111 H Calcium 9.1
[2019-12-14] MEDS: Phenazopyridine 200 MG TAB PO (17:36)
[2019-12-14 19:20] VITALS: BP 114/77; PULSE 99; RESP 18; TEMP 37.1; O2SAT 96
[2019-12-14 23:35] VITALS: BP 145/91; PULSE 81; RESP 17; TEMP 36.6; O2SAT 98
[2019-12-15] MEDS: Normal Saline Flush 10 ML SYR IVP ×2 (00:52→06:06)
[2019-12-15] MEDS: diazePAM 5 MG TAB PO ×2 (06:05→10:03)
[2019-12-15 07:33] LABS: Abs Immature Grans 0.03 10^3/uL (0.0-0.06); Absolute Basophil Count 0.03 10^3/uL (0.0-0.2); Absolute Lymphocyte Count 0.94 10^3/uL (1.2-3.4); Absolute Monocyte Count 0.49 10^3/uL (0.1-0.8); Absolute Neutrophil Count 4.71 10^3/uL (1.2-6.7); Basophils % 0.5; Eosinophils % 4.6; HCT 24.4 % (40.0-50.0); Immature Grans % 0.5; Lymphocytes % 14.5; MCH 28.7 pg (27.0-33.0); MCHC 32.8 % (32.0-36.0); MCV 87.5 fL (80-95); MPV 8.8 fL (8.0-11.0); Monocytes % 7.5; Neutrophils % 72.4; Nucleated RBC 0 %; Platelet Count 404 10^3/uL (130-400); RBC 2.79 10^6/uL (4.36-5.78); RDW 14.1 % (11.8-14.1)
[2019-12-15] MEDS: dilTIAZem CD 120 MG CAPCR 240 MG PO (07:50)
[2019-12-15] MEDS: Tamsulosin 0.4 MG CAPCR 0.8 MG PO (07:51)
[2019-12-15] MEDS: Polyethylene Glycol 3350 17 GM PACKET PO (07:51)
[2019-12-15] MEDS: Famotidine 20 MG TAB PO (07:51)
[2019-12-15 07:57] LABS: Anion Gap 4.9 mmol/L (3-11); BUN 13 mg/dL (7-18); CO2 27.1 mmol/L (21.0-32.0); CREATININE 1.98 mg/dL (0.70-1.30); Chloride 101 mmol/L (98-107); Diff Comment RBC Morph Reviewed; Estimated GFR 33.99 (mL/min/1.73m2); Glucose 109 mg/dL (74-106); Microcytosis 1+; Polychromasia Present; Potassium 3.8 mmol/L (3.5-5.1); Sodium 133 mmol/L (136-145)
[2019-12-15 08:37] VITALS: BP 118/80; PULSE 104; RESP 20; O2SAT 96
--- NOTE | 2019-12-15 09:08 | PDOC.CMPRO ---
Care Management Progress Note S/O: Joseph met with Dr. Mcgovern, urologist today. A: 64 year old male admitted to [facility] 12/11/19 for Hematuria P: Jonathan will remain at [facility] for Urology consult and care. He will likely be discharged home when medically and surgically cleared and follow up with his community providers. He remains knowledgeable about his plan of care and care needs. CM continues to follow.
[2019-12-15] MEDS: MAGNESIUM SULFATE 4 GM/100 ML BAG IVPB (09:20)
[2019-12-15] MEDS: Magnesium Oxide 400 MG TAB 800 MG PO (09:20)
[2019-12-15] MEDS: Acetaminophen 325 MG TAB 650 MG PO (10:03)
--- NOTE | 2019-12-15 10:05 | UCONE_ITS ---
Date of service: 12/15/19 Time of Service: 10:05 Assessment and Plan Assessment and plan (1) Hematuria: Status: Acute Assessment and plan: His clots and hematuria have not cleared with CBI alone, so I would suggest a cystoscopy, clot evacuation and fulguration. Unfortunately, I sustained a right arm injury and I am unable to perform this procedure at this time. I will check with [facility] (pts first choice) or [facility] for possible transfer. 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 He refused radical cystectomy at his initial diagnosis and underwent chemoradiation with bladder preservation instead. He was tumor free until he had a low grade noninvasive tumor in 2018. In 2019, he had a muscle invasive small cell tumor identified. He has been under the care of medical oncology since then. He has had no gross hematuria until @ 10 days ago. He developed obstructive uropathy and required quinn catheter placement and placement of bilateral nephrostomy tubes by interventional radiology at [facility] @ 1 week ago. He has had persistent gross hematuria with clots requiring CBI. He has received 2 units PRBC for a Hgb of 6.9 (now 8.0). We have been unable to wean him off his bladder irrigation. Review of Systems Constitutional Constitutional: Denies chills and Denies fever(s) Cardiovascular Cardiovascular: Denies chest pain at rest Respiratory Respiratory: Denies cough Gastrointestinal Gastrointestinal: Denies abdominal pain [facility] Medical History Anxiety CKD (chronic kidney disease), stage III Hematuria Hx of bladder cancer Hypertension Surgical History Hx of cystoscopy Nephrostomy status Bilateral TURBT Family History Father Prostate cancer Hypertension Brother Prostate cancer Paternal Grandfather Heart disease Stroke Paternal Uncle Cancer brain tumor Paternal Grandmother Cancer ovarian cancer Social History Smoking/Tobacco Use Status: Former Tobacco Use Quit Date: 03/19/97 Alcohol Intake: former Drug use: Never Substance use type: does not use Do you feel safe at home: Yes Do you feel safe in your relationship?: Yes Exam Const General: cooperative and not in acute distress Other: urine clear with CBI at this time Results Last Vital Signs Temp 36.6 C 12/14/19 23:35 Pulse 104 H 12/15/19 08:37 Resp 20 12/15/19 08:37 BP 118/80 12/15/19 08:37 Pulse Ox 96 12/15/19 08:37 Labs Result diagrams: 12/15/19 11:45 12/15/19 06:51 Labs: Laboratory Results - last 24 hr 12/15/19 12/15/19 06:51 06:51 WBC 6.50 RBC 2.79 L Hgb 8.0 L Hct 24.4 L MCV 87.5 MCH 28.7 MCHC 32.8 RDW 14.1 Plt Count 404 H MPV 8.8 Immature Gran % 0.5 Neutrophils % 72.4 Lymphocytes % 14.5 Monocytes % 7.5 Eosinophils % 4.6 Basophils % 0.5 Nucleated RBC % 0 Absolute Neutrophils 4.71 Absolute Lymphocytes 0.94 L Absolute Monocytes 0.49 Absolute Eosinophils 0.30 Absolute Basophils 0.03 RBC Morphology See below Polychromasia Present Microcytosis 1+ Sodium 133 L Potassium 3.8 Chloride 101 Carbon Dioxide 27.1 Anion Gap 4.9 BUN 13 Creatinine 1.98 H Estimated GFR/1.73 m2 33.99 Glucose 109 H Calcium 9.0 Magnesium 1.0 L
--- NOTE | 2019-12-15 11:45 | W.PM.DS.N ---
Date of service: 12/15/19 Time of Service: 11:45 DS: Diagnosis Discharge Diagnosis (1) Hematuria: Start date: 12/15/19 Start time: 11:45 Status: Acute Asessment and Plan: In setting of bladder ca with mass. CBI in place. Needs transfer to [facility] for further management. Will be transferred to [facility] urology service. Dr. Ambrose. (2) Acute urinary retention: Start date: 12/15/19 Start time: 11:46 Status: Acute Asessment and Plan: In setting of prostate mass. (3) History of bladder cancer: Start date: 12/15/19 Start time: 11:47 Status: Chronic Asessment and Plan: As above. Above case discussed with Dr. Yanez who is in agreement. Discharge Plan Disposition Patient Disposition: [facility] ([facility]) Condition: Stable Discharge Details Reason For Visit: HEMATURIA Admit Date/Time: 12/12/19 09:03 Admit Provider: Rex Alves Attending Provider: Rex Alves Primary Care Provider: Chucky Cruz Hospital Course Hospital Course: 64 y.o male with PMH of bladder cancer and recent bilateral nephrostomy tube placement in setting of urinary retention with ЕКАТЕРИНА. Jonathan was discharged from [facility] and presented to [facility] ED with in 24 hours post nephrostomy tube placement, for hematuria. Due to recent instrumentation he did receive ceftriaxone on admission, for fever post transfusion. Quinn catheter was placed and he had ally red blood. CBI initiated with clot formation. He did received 2 blood transfusions due to loss of blood. He did not want to be transferred at time of admission, he wanted to wait for urology on Sunday. Several time CBI was titrated down or stopped, with patient needing to be irrigated for clot formation. In the past he has had this problem and required cauderization. Pelvic U/s was done showing 2. Diffuse bladder wall thickening. The bladder mass or infectious/inflammatory process should be considered. 3. There is a Quinn catheter within the urinary bladder. The catheter tip appears to be in contact with/embedded into the urinary bladder wall. Urology returned today, but unable to do procedure. Dr. Mcgovern spoke with Dr. Brandon at [facility] and they agree to transfer for further management of patient. Nephrostomy tubes continue to drain clear. He was anxious during his stay and had spasms several times when holding CBI, and was given valium prn which was helpful with both anxiety and spasms.He denies CP, SOB, N/V/D. Home Meds and New Rx's Prescriptions: New tamsulosin 0.4 mg Capsule 0.8 mg PO DAILY Qty: 30 RF: 0 diazepam [Valium] 5 mg Tablet 5 mg PO QID PRN PRNQty: 20 RF: 0 Continued oxycodone 5 mg capsule 5 - 10 mg PO QHS MDD 10 mg PRN (Reason: pain) Qty: 10 RF: 0 diltiazem HCl 240 MG capsule,ext.rel 24h degradable 240 mg PO QAM RF: 0 lisinopril [Zestril] 30 MG tablet 30 mg PO DAILY RF: 0 hydrochlorothiazide 25 MG tablet 25 mg PO DAILY RF: 0 famotidine 20 MG tablet 20 mg PO PRN PRNRF: 0 oxybutynin chloride 5 mg tablet 5 mg PO TID PRN (Reason: frequent urination) Qty: 15 RF: 0 phenazopyridine [Pyridium] 200 mg tablet 200 mg PO TID PRN (Reason: burning) Qty: 12 RF: 0 Discharge Instructions Instructions: Urinary Retention in Men (GEN), Bladder Cancer (DC) Additional Instructions: Transfer to [facility] for further management Continue CBI Morphine for pain Discharge Orders Discharge Orders: Discharge Order (Routine); Ordered 12/15/19 Ordered By: Cielo Gonzalez DS: Summary Status at Discharge Functional status at discharge: independent ambulation Overall status at discharge: patient is not back to baseline Mental Status: mental status grossly normal Speech and Movement: speech and movement normal Mood: congruent mood Affect: normal affect Exam Narrative Exam Narrative: General: Very pleasant middle-aged male, A&Ox3, AKUTAN, looks tired HEENT: EOMI, MMM Heart: RRR, no m/r/g Lungs: CTAB Abdomen: soft, nontender, nondistended Extremities: no e/c/c BLEs Psych Mental Status: mental status grossly normal Speech and Movement: speech and movement normal Mood: congruent mood Affect: normal affect DS: Data Vitals/I&O Vitals and I&O: Vital Signs Temperature 36.6 C 12/14/19 23:35 Temperature Source Tympanic 12/15/19 08:37 Pulse 104 H 12/15/19 08:37 Pulse Rhythm Regular 12/15/19 09:15 Respiratory Rate 20 12/15/19 08:37 Respiratory Effort Non-Labored 12/15/19 09:15 Respiratory Depth Normal 12/15/19 09:15 Respiratory Pattern Normal 12/15/19 09:15 Blood Pressure 118/80 12/15/19 08:37 Blood Pressure Mean 89 12/11/19 05:45 Pulse Oximetry 96 12/15/19 08:37 Oxygen Delivery Method Room Air 12/15/19 08:37 Oxygen Flow Rate 0 12/15/19 08:37 Pain Level 6 12/15/19 00:52 Intake & Output 12/14/19 12/14/19 12/15/19 11:59 23:59 11:59 Intake Total 1790 / 3590.833 1800.833 / 3590.833 Output Total 1375 / 2575 1200 / 2575 1250 / 1250 Balance 415 / 1015.833 600.833 / 1015.833 -1250 / -1250 Intake: IV 1000 / 2320.833 1320.833 / 2320.833 Oral 790 / 1270 480 / 1270 Output: Drainage 1375 / 2575 1200 / 2575 1250 / 1250 LT flank 775 / 1375 600 / 1375 750 / 750 RT flank 600 / 1200 600 / 1200 500 / 500 Other: Urine Color Griffith Griffith Griffith Urine Appearance Clear Hematuria Hematuria Hematuria Comment irrigated quinn minimal smal clots were dislodged every 45 minutes bags changes Stool Size Small Large Stool Characteristics Formed Soft Hard Formed Data Completed and Pending Completed studies during hospitalization [Text1]: CLINICAL HISTORY: hematuria. TECHNIQUE: Ultrasound renal, pelvic, both abdmonal and tranvaginal was performed using standard protocol. COMPARISON: CT CT ABDOMEN PELVIS WO from 12/07/2019 FINDINGS: Bladder:There is a Quinn catheter visible within the bladder. The bladder was inadequately distended for this examination. There is diffuse bladder wall thickening up to 3 cm. The Quinn catheter tip appears to be in contact/embedded into the urinary bladder wall. IMPRESSION: 1. Examination limited to inadequate filling of the urinary bladder. 2. Diffuse bladder wall thickening. The bladder mass or infectious/inflammatory process should be considered. 3. There is a Quinn catheter within the urinary bladder. The catheter tip appears to be in contact with/embedded into the urinary bladder wall. Labs on day of discharge: Labs from last 24 hours 12/15/19 12/15/19 12/15/19 08:30 06:51 06:51 WBC 6.50 RBC 2.79 L Hgb Pending 8.0 L Hct Pending 24.4 L MCV 87.5 MCH 28.7 MCHC 32.8 RDW 14.1 Plt Count 404 H MPV 8.8 Immature Gran % 0.5 Neutrophils % 72.4 Lymphocytes % 14.5 Monocytes % 7.5 Eosinophils % 4.6 Basophils % 0.5 Nucleated RBC % 0 Absolute Neutrophils 4.71 Absolute Lymphocytes 0.94 L Absolute Monocytes 0.49 Absolute Eosinophils 0.30 Absolute Basophils 0.03 RBC Morphology See below Polychromasia Present Microcytosis 1+ Sodium 133 L Potassium 3.8 Chloride 101 Carbon Dioxide 27.1 Anion Gap 4.9 BUN 13 Creatinine 1.98 H Estimated GFR/1.73 m2 33.99 Glucose 109 H Calcium 9.0 Magnesium 1.0 L PFSH Medical History Anxiety CKD (chronic kidney disease), stage III Hematuria Hx of bladder cancer Hypertension Surgical History Hx of cystoscopy Nephrostomy status Bilateral TURBT Family History Father Prostate cancer Hypertension Brother Prostate cancer Paternal Grandfather Heart disease Stroke Paternal Uncle Cancer brain tumor Paternal Grandmother Cancer ovarian cancer Social History Smoking/Tobacco Use Status: Former Tobacco Use Quit Date: 03/19/97 Alcohol Intake: former Drug use: Never Substance use type: does not use Do you feel safe at home: Yes Do you feel safe in your relationship?: Yes
[2019-12-15 12:04] LABS: HCT 26.4 % (40.0-50.0); HGB 8.5 g/dL (13.5-17.5)
== END 2019-12-15 14:48 | disposition short-term general hospital (02) | DRG 687 ==
LOC: ER 05:34 → MS 06:11
PROVIDERS: Family Medicine; Internal Medicine; Nurse Practitioner Family; Admitting Provider General Practice; Emergency Provider Emergency Medicine; PCP Internal Medicine; Visit Provider General Practice
DX: C67.9 Malignant neoplasm of bladder, unspecified (principal); N13.8 Other obstructive and reflux uropathy; D62 Acute posthemorrhagic anemia; R31.9 Hematuria, unspecified; N18.3 Chronic kidney disease, stage 3 (moderate); I12.9 Hypertensive chronic kidney disease with stage 1 through stage 4 chronic kidney disease, or unspecified chronic kidney disease; F41.9 Anxiety disorder, unspecified; Z93.6 Other artificial openings of urinary tract status; Z87.891 Personal history of nicotine dependence; R33.8 Other retention of urine
CPT/HCPCS: 36415; 36430; 51703; 76857; 80048; 84145; 86850; 86900; 86901; 86920; 96361; 96365; 96375; 96376; 99222; 99225; 99232; 99239; 99252; 99285; U0003; 81003; 81015; 83735; 85014; 85018; 85025; 87086; J0696; J3475; P9016

== ENCOUNTER 2020-01-01 02:45 | Outpatient (CLI) | payer BC, SELFPAY ==
[2020-01-01 11:41] LABS: Abs Immature Grans 0.05 10^3/uL (0.0-0.06); Absolute Basophil Count 0.03 10^3/uL (0.0-0.2); Absolute Eosinophil Count 0.23 10^3/uL (0.0-0.7); Absolute Lymphocyte Count 0.87 10^3/uL (1.2-3.4); Absolute Monocyte Count 0.49 10^3/uL (0.1-0.8); Absolute Neutrophil Count 5.26 10^3/uL (1.2-6.7); Basophils % 0.4; Eosinophils % 3.3; HCT 29.8 % (40.0-50.0); HGB 9.5 g/dL (13.5-17.5); Immature Grans % 0.7; Lymphocytes % 12.6; MCH 27.8 pg (27.0-33.0); MCHC 31.9 % (32.0-36.0); MCV 87.1 fL (80-95); MPV 8.7 fL (8.0-11.0); Monocytes % 7.1; Neutrophils % 75.9; Nucleated RBC 0 %; Platelet Count 644 10^3/uL (130-400); RBC 3.42 10^6/uL (4.36-5.78); RDW 13.5 % (11.8-14.1); RDW-SD 42.9 fL; WBC 6.93 10^3/uL (4.4-10.8)
[2020-01-01 12:05] LABS: Diff Comment PLT Morph Reviewed; Polychromasia Present
[2020-01-01 12:20] LABS: ALT 14 U/L (16-63); AST 41 U/L (15-37); Albumin 3.3 g/dL (3.4-5.0); Alkaline Phosphatase 107 U/L (46-116); Anion Gap 12.4 mmol/L (3-11); BUN 44 mg/dL (7-18); Bilirubin, Total 0.4 mg/dL (0.2-1.0); CO2 24.6 mmol/L (21.0-32.0); CREATININE 2.68 mg/dL (0.70-1.30); Calcium 10.5 mg/dL (8.5-10.1); Chloride 97 mmol/L (98-107); Estimated GFR 23.97 (mL/min/1.73m2); FREE T4 1.49 ng/dL (0.76-1.46); Glucose 104 mg/dL (74-106); Magnesium 1.9 mg/dL (1.8-2.4); Potassium 4.8 mmol/L (3.5-5.1); Sodium 134 mmol/L (136-145); TSH 2.58 uIU/mL (0.36-3.74)
[2020-01-01 13:14] LABS: Ferritin 526 ng/mL (26-388)
== END 2020-01-01 03:05 ==
PROVIDERS: PCP Internal Medicine; Visit Provider Internal Medicine
DX: C79.10 Secondary malignant neoplasm of unspecified urinary organs (principal); C67.9 Malignant neoplasm of bladder, unspecified; Z79.899 Other long term (current) drug therapy; Z51.11 Encounter for antineoplastic chemotherapy
CPT/HCPCS: 36415; 80053; 86900; 86901; 82728; 83735; 84439; 84443; 85025

== ENCOUNTER 2020-01-13 01:28 | Outpatient (RCR) | payer BC, SELFPAY ==
[2020-01-13] MEDS: Normal Saline Flush 10 ML SYR IVP (09:57)
[2020-01-13 10:03] LABS: HCT 26.9 % (40.0-50.0); HGB 8.5 g/dL (13.5-17.5); MCH 27.5 pg (27.0-33.0); MCHC 31.6 % (32.0-36.0); MCV 87.1 fL (80-95); MPV 8.9 fL (8.0-11.0); Nucleated RBC 0 %; RBC 3.09 10^6/uL (4.36-5.78); RDW 13.5 % (11.8-14.1); RDW-SD 42.9 fL
[2020-01-13 10:23] LABS: Absolute Neutrophil Count 1.37 10^3/uL (1.2-6.7); Platelet Count 278 10^3/uL (130-400)
[2020-01-13 10:24] LABS: Absolute Eosinophil Count 0.08 10^3/uL (0.0-0.7); Absolute Monocyte Count 0.04 10^3/uL (0.1-0.8)
[2020-01-13 10:26] LABS: WBC 1.98 10^3/uL (4.4-10.8)
[2020-01-13 10:27] LABS: ALT 22 U/L (16-63); AST 39 U/L (15-37); Albumin 2.7 g/dL (3.4-5.0); Alkaline Phosphatase 108 U/L (46-116); Anion Gap 10.9 mmol/L (3-11); BUN 55 mg/dL (7-18); Bilirubin, Total 0.4 mg/dL (0.2-1.0); CO2 22.1 mmol/L (21.0-32.0); CREATININE 2.06 mg/dL (0.70-1.30); Calcium 9.7 mg/dL (8.5-10.1); Chloride 94 mmol/L (98-107); Diff Comment Manual Differential; Estimated GFR 32.47 (mL/min/1.73m2); Glucose 110 mg/dL (74-106); Poikilocytes 1+; Potassium 4.1 mmol/L (3.5-5.1); Sodium 127 mmol/L (136-145); TSH 2.66 uIU/mL (0.36-3.74); Total Protein 7.8 g/dL (6.4-8.2)
[2020-01-13 11:29] LABS: Ferritin > 2000 ng/mL (26-388)
== END 2020-01-17 23:59 | disposition home or self-care (01) ==
LOC: INF 01:28
PROVIDERS: PCP Internal Medicine; Visit Provider Internal Medicine
DX: C79.19 Secondary malignant neoplasm of other urinary organs (principal); C67.9 Malignant neoplasm of bladder, unspecified; Z79.899 Other long term (current) drug therapy; D63.0 Anemia in neoplastic disease
CPT/HCPCS: 36415; 80053; 86900; 86901; 82728; 84439; 84443; 85025

== ENCOUNTER 2020-01-20 01:47 | Outpatient (RCR) | payer BC, SELFPAY | END 2020-01-20 23:59 | disposition home or self-care (01) | LOC: INF 01:47 | PROVIDERS: PCP Internal Medicine; Visit Provider Internal Medicine ==